=== PATIENT | female | born 1990 | race African-American/Black ===

== ENCOUNTER 2017-12-30 12:37 | Emergency (ER) | payer OTHER, MEDICAID ==
--- NOTE | 2017-12-30 13:41 | ER Document Report ---
ED General - General Chief Complaint: Vag Bleeding, +preg <12wks Stated Complaint: VAGINAL BLEEDING Time Seen by Provider: 12/30/17 13:16 Notes: Patient states her LMP was November 20 and she had a positive home test. Vaginal bleeding started yesterday, still has a little bleeding today but not as bad. Complains of lower abdominal cramping. TRAVEL OUTSIDE OF THE [place] IN LAST 30 DAYS: No - HPI Patient complains to provider of: vaginal bleeding Onset: Yesterday Onset/Duration: Sudden Quality of pain: Cramping Severity: Mild Pain Level: 2 Associated symptoms: denies: Fever, Vomiting Exacerbated by: Denies Relieved by: Denies Similar symptoms previously: No Recently seen / treated by doctor: No - Related Data Allergies/Adverse Reactions: Penicillins Allergy (Verified 12/30/17 12:40) Past Medical History - General Information source: Patient Last Menstrual Period: 11/20/17 - Social History Smoking Status: Never Smoker Frequency of alcohol use: Occasional Drug Abuse: None Lives with: Spouse/Significant other Family History: Reviewed & Not Pertinent Patient has suicidal ideation: No Patient has homicidal ideation: No Pulmonary Medical History: Reports: Hx Asthma Past Surgical History: Reports: Hx Orthopedic Surgery Review of Systems - Review of Systems Constitutional: No symptoms reported EENT: No symptoms reported Cardiovascular: No symptoms reported Respiratory: No symptoms reported Gastrointestinal: See HPI Genitourinary: No symptoms reported Female Genitourinary: See HPI Musculoskeletal: No symptoms reported Skin: No symptoms reported Hematologic/Lymphatic: No symptoms reported Neurological/Psychological: No symptoms reported -: Yes All other systems reviewed and negative Physical Exam - Vital signs Vitals: Temp Pulse Resp BP Pulse Ox 97.7 F 76 16 114/71 97 12/30/17 12:46 12/30/17 12:46 12/30/17 12:46 12/30/17 12:46 12/30/17 12:46 - General General appearance: Appears well In distress: None - Respiratory Respiratory status: No respiratory distress Breath sounds: Normal - Cardiovascular Rhythm: Regular Heart sounds: Normal auscultation - Abdominal Inspection: Normal Bowel sounds: Normal Tenderness: Nontender - Extremities General upper extremity: Normal inspection General lower extremity: Normal inspection - Neurological Neuro grossly intact: Yes Cognition: Normal Orientation: AAOx4 - Psychological Associated symptoms: Normal affect, Normal mood - Skin Skin Temperature: Warm Skin Moisture: Dry Skin Color: Normal Course - Re-evaluation Re-evalutation: 12/30/17 16:57 quant level at 160, and no IUP seen on U/S. Recommended to have serial quant levels and u/s as ectopic could be ruled out. - Vital Signs Vital signs: Temp Pulse Resp BP Pulse Ox 97.7 F 76 16 114/71 97 12/30/17 12:46 12/30/17 12:46 12/30/17 12:46 12/30/17 12:46 12/30/17 12:46 - Laboratory Laboratory results interpreted by me: 12/30/17 12/30/17 13:30 15:45 Beta HCG, Quant 159.86 H Urine Blood SMALL H Discharge - Discharge Clinical Impression: Vaginal bleeding, Positive blood test Condition: Good Disposition: HOME, SELF-CARE Additional Instructions: you are to return in 48 hrs for repeat quant levels and ultrasound as ectopic cannot be ruled out. (SundayJanuary 01) tylenol prn cramping return earlier if any problems Forms: Return to Work
[2017-12-30 14:06] LABS: APPEARANCE,URINE SLIGHTLY-CLOUDY; BILIRUBIN,URINE NEGATIVE (NEGATIVE); COLOR,URINE YELLOW; GLUCOSE, URINE NEGATIVE (NEGATIVE); KETONES,URINE NEGATIVE (NEGATIVE); LEUKOCYTE ESTERASE,URINE NEGATIVE (NEGATIVE); NITRITE,URINE NEGATIVE (NEGATIVE); PROTEIN,URINE NEGATIVE (NEGATIVE); URINE SPECIFIC GRAVITY 1.024; UROBILINOGEN,URINE NEGATIVE mg/dL (<2.0)
--- NOTE | 2017-12-30 14:07 | RADIOLOGY REPORT (SQ) ---
EXAM DESCRIPTION: U/S OB TRANSVAGINAL W/O DOP COMPLETED DATE/TIME: 12/30/2017 1:57 pm REASON FOR STUDY: vag bleed and cramping COMPARISON: None. TECHNIQUE: Transvaginal static and realtime grayscale images acquired of the pelvis. Additional shona cted spectral and color Doppler images recorded. All images stored on PACs. BHCG: Pending LIMITATIONS: None. FINDINGS: UTERUS: No visualized intrauterine . Uterus is 9 x 6 x 5 cm in size. Endometria l stripe 8 mm in thickness. Cervix closed. No nabothian cysts. RIGHT ADNEXA: Normal ovary with normal vascular flow. Right ovary 4.2 x 1.7 x 1.5 cm in size with a 1.8 cm simple cyst. No adnexal free fluid. No adnexal masses. LEFT ADNEXA: Normal ovary with normal vascular flow. Left ovary 2.5 x 1.2 x 1.1 cm in size. No adnexal free fluid. No adnexal masses. FREE FLUID: None. OTHER: No other significant finding. IMPRESSION: NO VISUALIZED INTRA- OR EXTRAUTERINE . ECTOPIC CANNOT ENTIRELY BE EXCLUDED. FOLLOW-UP ULTRASOUND AND SERIAL BHCG LEVELS STRONGLY RECOMMENDED TO ACCURATELY ASSESS STATU S. TECHNICAL DOCUMENTATION: JOB ID: [id number] [employer]- All Rights Reserved Reading location - IP/workstation name: [email or web address]
[2017-12-30 17:12] VITALS: BP 121/80
== END 2017-12-30 17:12 | disposition home or self-care (01) ==
LOC: ER 12:37
DX: N93.9 Abnormal uterine and vaginal bleeding, unspecified (principal); R10.30 Lower abdominal pain, unspecified; J45.909 Unspecified asthma, uncomplicated; Z32.01 Encounter for pregnancy test, result positive; Z88.0 Allergy status to penicillin
CPT/HCPCS: 36415; 76817; 81001; 84702; 86900; 86901; 99284

== ENCOUNTER 2018-01-01 09:07 | Emergency (ER) | payer OTHER, MEDICAID ==
--- NOTE | 2018-01-01 09:48 | ER Document Report ---
ED GI/ - General Chief Complaint: Vag Bleeding, +preg <12wks Stated Complaint: VAGINAL BLEEDING Time Seen by Provider: 01/01/18 09:18 Information source: Patient Notes: Patient is a 27-year-old female 002 at 6 weeks by dates who presents today with initially some vaginal spotting and bleeding with no blood clots on Sunday. She was seen and evaluated here Sunday and had a low quantitative hCG , Rh+, and transvaginal ultrasound showing no obvious IUP or adnexal masses. Patient presents today for repeat follow-up. She states the bleeding has stopped. She denies any cramping. She denies any fevers or dysuria. TRAVEL OUTSIDE OF THE [place] IN LAST 30 DAYS: No - HPI Patient complains to provider of: , Vaginal bleeding Onset: Other - See above Timing/Duration: Gradual Quality of pain: No pain Severity at maximum: Mild Severity in ED: None Pain Level: Denies Location: Suprapubic Vaginal bleeding (Compared to normal period): None Sexual history: Inactive Associated symptoms: Other - See above Exacerbated by: Denies Relieved by: Denies Similar symptoms previously: Yes Recently seen / treated by doctor: Yes - Related Data Allergies/Adverse Reactions: Penicillins Allergy (Verified 01/01/18 09:08) Past Medical History - General Information source: Patient - Social History Smoking Status: Unknown if Ever Smoked Cigarette use (# per day): No Chew tobacco use (# tins/day): No Smoking Education Provided: No Family History: Reviewed & Not Pertinent Pulmonary Medical History: Reports: Hx Asthma Renal/ Medical History: Denies: Hx Peritoneal Dialysis Past Surgical History: Reports: Hx Orthopedic Surgery Review of Systems - Review of Systems Constitutional: denies: Fever Cardiovascular: denies: Syncope, Dizziness Respiratory: denies: Short of breath Gastrointestinal: denies: Vomiting Genitourinary: denies: Dysuria Skin: Other - no hives. denies: Rash Neurological/Psychological: Other - no slurred speech -: Yes All other systems reviewed and negative Physical Exam - Vital signs Vitals: Temp Pulse Resp BP Pulse Ox 99.2 F 94 12 111/71 99 01/01/18 09:10 01/01/18 09:10 01/01/18 09:10 01/01/18 09:10 01/01/18 09:10 Notes: Given the history and physical examination, with no bleeding or cramping at this time, I will obtain a quantitative hCG and repeat ultrasound. I do not believe a urine analysis or other laboratory work is necessary at this moment. Course - Re-evaluation Re-evalutation: 01/01/18 11:58 Patient still denies any pain. Repeat quantitative hCG has decreased from previous visit. Ultrasound unremarkable. Hemoglobin is recorded. Given the above history and physical examination, I do believe that the patient has had a miscarriage. Strict return precautions have been explained to the patient. 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 - Vital Signs Vital signs: Temp Pulse Resp BP Pulse Ox 99.2 F 94 12 111/71 99 01/01/18 09:10 01/01/18 09:10 01/01/18 09:10 01/01/18 09:10 01/01/18 09:10 - Laboratory Result Diagrams: 01/01/18 09:55 Laboratory results interpreted by me: 01/01/18 01/01/18 09:55 09:55 RDW 14.2 H Lymphocytes % 45.2 H Beta HCG, Quant 45.75 H Discharge - Discharge Clinical Impression: Miscarriage Condition: Good Disposition: HOME, SELF-CARE Additional Instructions: Come back immediately for any increased pain, fevers, lightheadedness, dizziness , excessive vaginal bleeding, or any other acute problems. Please follow-up with your primary care physician/[employer] WORK[employer] as we have discussed. Referrals: RODOLFO GARDINER MD [Primary Care Provider] - Follow up as needed
[2018-01-01 10:09] LABS: ABSOLUTE EOSINOPHILS # (AUTO) 0.1 10^3/uL (0.0-0.6); ABSOLUTE MONOCYTES (AUTO) 0.2 10^3/uL (0.1-1.4); ABSOLUTE NEUT (AUTO) 2.1 10^3/uL (1.7-8.2); BASOPHILS % (AUTO) 0.6 % (0-2); EOSINOPHILS % (AUTO) 1.2 % (0-6); HEMOGLOBIN 14.2 g/dL (12.0-15.5); LYMPHOCYTES % (AUTO) 45.2 % (13-45); MEAN CORPUSCULAR HEMOGLOBIN 30.1 pg (27.0-33.4); MEAN CORPUSCULAR HGB CONC 33.1 g/dL (32.0-36.0); MEAN CORPUSCULAR VOLUME 91 fl (80-97); MONOCYTES % (AUTO) 5.4 % (3-13); PLATELET COUNT 311 10^3/uL (150-450); RED BLOOD COUNT 4.73 10^6/uL (3.72-5.28); RED CELL DISTRIBUTION WIDTH 14.2 % (11.5-14.0); SEGMENTED NEUTROPHILS % (AUTO) 47.6 % (42-78); TOTAL CELLS COUNTED % (AUTO) 100 %; WHITE BLOOD COUNT 4.5 10^3/uL (4.0-10.5)
--- NOTE | 2018-01-01 11:52 | RADIOLOGY REPORT (SQ) ---
EXAM DESCRIPTION: U/S OB TRANSVAGINAL W/O DOP COMPLETED DATE/TIME: 01/01/2018 11:35 am REASON FOR STUDY: 44,vag bleeding COMPARISON: 12/30/2017 TECHNIQUE: Static and realtime grayscale images acquired of the pelvis. Additional selected spectral and color Doppler images recorded. All images stored on PACs. [id number]. On 12/30/2017 159.86 LIMITATIONS: None. FINDINGS: UTERUS: No visualized intrauterine . RIGHT ADNEXA: Normal ovary with normal vascular flow. No adnexal free fluid. 1.9 cm simple ovarian cyst LEFT ADNEXA: Ovary not identified. No adnexal free fluid. No adnexal masses. FREE FLUID: None. OTHER: No other significant finding. IMPRESSION: NO VISUALIZED INTRA- OR EXTRAUTERINE . bHCG LEVEL TOO LOW TO EXPECT VISUALIZATION OF . ECTOPIC CANNOT BE EXCLUDED. TECHNICAL DOCUMENTATION: JOB ID: [id number] [employer]- All Rights Reserved Reading location - IP/workstation name: [email or web address]
[2018-01-01 12:08] VITALS: BP 112/63
== END 2018-01-01 12:09 | disposition home or self-care (01) ==
LOC: ER 09:07
DX: O03.9 Complete or unspecified spontaneous abortion without complication (principal); J45.909 Unspecified asthma, uncomplicated; Z88.0 Allergy status to penicillin
CPT/HCPCS: 36415; 76817; 84702; 85025; 99284

== ENCOUNTER 2018-05-21 18:28 | Emergency (ER) | payer OTHER, MEDICAID ==
[2018-05-21] MEDS ORDERED: RINGERS SOLUTION,LACTATED 1,000 ML IV ONE (18:48)
[2018-05-21] MEDS ORDERED: NORMAL SALINE 1000 ML 1,000 ML IV PRN (18:48)
[2018-05-21] MEDS ORDERED: ONDANSETRON HCL INJ/PF 4 MG/2 ML SDV IV ONE (18:49)
--- NOTE | 2018-05-21 18:52 | ER Document Report ---
ED General - General Chief Complaint: Headache Stated Complaint: DIZZY Time Seen by Provider: 05/21/18 18:45 Mode of Arrival: Ambulatory Information source: Patient Notes: Chief complaint: Feeling dizzy History of complain:( obtained from----patient) 27 years old female 6 weeks , nauseous for the last few weeks, not been eating well or drinking well due to nausea and vomiting, presents with lightheadedness weak dizzy for the last few days. No fever chills or other constitutional symptoms. Denies any abdominal pain. Denies any dysuria frequency urgency. This is her fourth with 2 living children and one miscarriage Onset: As above Duration: As above Severity: Moderate Quality: Not applicable Context: As above Exacerbating factor and relieving factors: Exertion REVIEW OF SYSTEMS: CONSTITUTIONAL : Denies fever, chills, or sweats. Denies recent illness. EENT: Denies eye, ear, throat, or mouth pain or symptoms. Denies nasal or sinus congestion or discharge. Denies throat, tongue, or mouth swelling or difficulty swallowing. CARDIOVASCULAR: Denies chest pain. Denies palpitations or racing or irregular heart beat. Denies ankle edema. RESPIRATORY: Denies cough, cold, or chest congestion. Denies shortness of breath, difficulty breathing, or wheezing. GASTROINTESTINAL: Denies distention. Denies nausea, vomiting, or diarrhea. Denies blood in vomitus, stools, or per rectum. Denies black, tarry stools. Denies constipation. GENITOURINARY: Denies difficulty urinating, painful urination, burning, frequency, blood in urine, or discharge. FEMALE GENITOURINARY: Denies vaginal bleeding, heavy or abnormal periods, irregular periods. Denies vaginal discharge or odor. MUSCULOSKELETAL: Denies back or neck pain or stiffness. Denies joint pain or swelling. SKIN: Denies rash, lesions or sores. HEMATOLOGIC : Denies easy bruising or bleeding. LYMPHATIC: Denies swollen, enlarged glands. NEUROLOGICAL: Denies confusion or altered mental status. Denies passing out or loss of consciousness. Denies dizziness or lightheadedness. Denies headache. Denies weakness or paralysis or loss of use of either side. Denies problems with gait or speech. Denies sensory loss, numbness, or tingling. Denies seizures. PSYCHIATRIC: Denies anxiety or stress. Denies depression, suicidal ideation, or homicidal ideation. ALL OTHER SYSTEMS REVIEWED AND NEGATIVE. PHYSICAL EXAMINATION: GENERAL: Well-appearing, well-nourished and in no acute distress. HEAD: Atraumatic, normocephalic. EYES: Pupils equal round and reactive to light, extraocular movements intact, conjunctiva are normal. ENT: Nares patent, oropharynx clear without exudates. Moist mucous membranes. NECK: Normal range of motion, supple without lymphadenopathy LUNGS: Breath sounds clear to auscultation bilaterally and equal. No wheezes rales or rhonchi. HEART: Regular rate and rhythm without murmurs ABDOMEN: Soft, nontender, nondistended abdomen. No guarding, no rebound. No masses appreciated. Examination of genitals-deferred Musculoskeletal: Normal range of motion, no pitting or edema. No cyanosis. NEUROLOGICAL: Cranial nerves grossly intact. Normal speech, normal gait. Normal sensory, motor exams PSYCH: Normal mood, normal affect. SKIN: Warm, Dry, normal turgor, no rashes or lesions noted. Dictation was performed using [employer] voice recognition software TRAVEL OUTSIDE OF THE [place] IN LAST 30 DAYS: No - HPI Notes: Dictated - Related Data Allergies/Adverse Reactions: Penicillins Allergy (Verified 01/01/18 09:08) Past Medical History - General Information source: Patient - Social History Smoking Status: Never Smoker Frequency of alcohol use: None Drug Abuse: None Lives with: Family Family History: Reviewed & Not Pertinent Pulmonary Medical History: Reports: Hx Asthma Renal/ Medical History: Denies: Hx Peritoneal Dialysis Past Surgical History: Reports: Hx Orthopedic Surgery Review of Systems - Review of Systems Notes: Dictated Physical Exam - Vital signs Vitals: Temp Pulse Resp BP Pulse Ox 99.1 F 74 16 114/69 100 05/21/18 18:33 05/21/18 18:33 05/21/18 18:33 05/21/18 18:33 05/21/18 18:33 - Notes Notes: Dictated Course - Re-evaluation Re-evalutation: 05/21/18 20:44 Given IV fluid - Vital Signs Vital signs: Temp Pulse Resp BP Pulse Ox 99.1 F 74 16 114/69 100 05/21/18 18:33 05/21/18 18:33 05/21/18 18:33 05/21/18 18:33 05/21/18 18:33 - Laboratory Result Diagrams: 05/21/18 19:53 05/21/18 19:53 Discharge - Discharge Clinical Impression: Nausea/vomiting in , Dehydration Condition: Fair Disposition: HOME, SELF-CARE Instructions: Antinausea Medication ([facility]), ([facility]) Prescriptions: Ondansetron [Zofran Odt 4 mg Tablet] 1 - 2 tab PO Q4H PRN #30 tab.rapdis PRN Reason: For Nausea/Vomiting Referrals: RODOLFO GARDINER MD [Primary Care Provider] - Follow up as needed
[2018-05-21 20:04] LABS: ABSOLUTE BASOPHILS # (AUTO) 0.1 10^3/uL (0.0-0.2); ABSOLUTE LYMPHOCYTES (AUTO) 3.1 10^3/uL (0.5-4.7); ABSOLUTE MONOCYTES (AUTO) 0.5 10^3/uL (0.1-1.4); ABSOLUTE NEUT (AUTO) 5.4 10^3/uL (1.7-8.2); BASOPHILS % (AUTO) 0.8 % (0-2); EOSINOPHILS % (AUTO) 0.4 % (0-6); HEMATOCRIT 38.8 % (36.0-47.0); HEMOGLOBIN 13.1 g/dL (12.0-15.5); LYMPHOCYTES % (AUTO) 34.1 % (13-45); MEAN CORPUSCULAR HEMOGLOBIN 30.5 pg (27.0-33.4); MEAN CORPUSCULAR HGB CONC 33.7 g/dL (32.0-36.0); MEAN CORPUSCULAR VOLUME 91 fl (80-97); MONOCYTES % (AUTO) 5.6 % (3-13); PLATELET COUNT 315 10^3/uL (150-450); RED BLOOD COUNT 4.29 10^6/uL (3.72-5.28); RED CELL DISTRIBUTION WIDTH 13.3 % (11.5-14.0); SEGMENTED NEUTROPHILS % (AUTO) 59.1 % (42-78); TOTAL CELLS COUNTED % (AUTO) 100 %; WHITE BLOOD COUNT 9.2 10^3/uL (4.0-10.5)
[2018-05-21 20:19] LABS: ALANINE AMINOTRANSFERASE 24 U/L (9-52); ALBUMIN 4.4 g/dL (3.5-5.0); ALKALINE PHOSPHATASE 41 U/L (38-126); ANION GAP 13 (5-19); ASPARTATE AMINO TRANSFERASE 24 U/L (14-36); BILIRUBIN,DIRECT 0.3 mg/dL (0.0-0.4); BILIRUBIN,TOTAL 0.5 mg/dL (0.2-1.3); BLOOD UREA NITROGEN 11 mg/dL (7-20); CALCIUM 9.4 mg/dL (8.4-10.2); CARBON DIOXIDE 21 mmol/L (22-30); CHLORIDE 104 mmol/L (98-107); GLUCOSE 82 mg/dL (75-110); POTASSIUM 4.8 mmol/L (3.6-5.0); SODIUM 137.5 mmol/L (137-145); TOTAL PROTEIN 7.4 g/dL (6.3-8.2)
[2018-05-21 21:51] VITALS: BP 107/49
== END 2018-05-21 21:47 | disposition home or self-care (01) ==
LOC: ER 18:28
DX: O21.9 Vomiting of pregnancy, unspecified (principal); O26.891 Other specified pregnancy related conditions, first trimester; E86.0 Dehydration; R51 Headache; R42 Dizziness and giddiness; Z3A.01 Less than 8 weeks gestation of pregnancy; J45.909 Unspecified asthma, uncomplicated
CPT/HCPCS: 99284; 96375; 96365; 96366; 36415; 84702; 85025; 80053; J2405; J7120

== ENCOUNTER 2018-06-03 20:53 | Emergency (ER) | payer OTHER, MEDICAID ==
[2018-06-03 21:45] VITALS: BP 109/69
[2018-06-03] MEDS ORDERED: DIPHENHYDRAMINE HCL 50 MG CAPSULE PO ONE (22:48)
[2018-06-03] MEDS ORDERED: ACETAMINOPHEN 325 MG TABLET PO ONE (22:48)
[2018-06-03] MEDS ORDERED: PROMETHAZINE HCL 25 MG TABLET PO ONE (22:48)
--- NOTE | 2018-06-03 22:59 | ER Document Report ---
ED Headache - General Chief Complaint: Headache Stated Complaint: SEVERE HEADACHE,CHILLS Time Seen by Provider: 06/03/18 22:31 Mode of Arrival: Ambulatory Information source: Patient Notes: 27-year-old female presented ED for complaint of migraine headache. She has a history of migraines and scoliosis. 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 She is alert and oriented respirations regular and unlabored pupils equal and react to light and walks with a even steady gait. TRAVEL OUTSIDE OF THE [place] IN LAST 30 DAYS: No - HPI Patient complains to provider of: "Migraine" Patient reports: Other - History of headaches Onset: This morning Onset was: Gradual Timing: Still present Quality of pain: Achy, Sharp Severity: Severe Pain Level: 5 Associated symptoms: Nausea/vomiting Exacerbated by: Light, Noise, Movement Similar symptoms previously: Yes Recently seen / treated by doctor: Yes - Related Data Allergies/Adverse Reactions: Penicillins Allergy (Verified 01/01/18 09:08) Past Medical History - General Information source: Patient - Social History Smoking Status: Never Smoker Cigarette use (# per day): No Chew tobacco use (# tins/day): No Smoking Education Provided: No Drug Abuse: None 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 Lives with: Family Family History: Reviewed & Not Pertinent Patient has suicidal ideation: No Patient has homicidal ideation: No - Past Medical History Cardiac Medical History: Reports: None Pulmonary Medical History: Reports: Hx Asthma EENT Medical History: Reports: None Neurological Medical History: Reports: Hx Migraine Endocrine Medical History: Reports: Other - Gestational diabetes Renal/ Medical History: Reports: None Malignancy Medical History: Reports: None GI Medical History: Reports: None Musculoskeletal Medical History: Reports Hx Musculoskeletal Deformity - Scoliosis Skin Medical History: Reports None Psychiatric Medical History: Reports: None Traumatic Medical History: Reports: None Infectious Medical History: Reports: None Past Surgical History: Reports: Hx Orthopedic Surgery - Rashid rods and screws - Immunizations Immunizations up to date: Yes Review of Systems - Review of Systems Constitutional: No symptoms reported EENT: No symptoms reported Cardiovascular: No symptoms reported Respiratory: No symptoms reported Gastrointestinal: Nausea Genitourinary: No symptoms reported Female Genitourinary: No symptoms reported Musculoskeletal: No symptoms reported Skin: No symptoms reported Hematologic/Lymphatic: No symptoms reported Neurological/Psychological: Headaches -: Yes All other systems reviewed and negative Physical Exam - Vital signs Vitals: Temp Pulse Resp BP Pulse Ox 98.6 F 70 18 109/69 100 06/03/18 21:44 06/03/18 21:44 06/03/18 21:44 06/03/18 21:44 06/03/18 21:44 Interpretation: Normal - General General appearance: Appears well, Alert - HEENT Head: Normocephalic, Atraumatic Eyes: Normal Pupils: PERRL Ears: Normal External canal: Normal Tympanic membrane: Normal Sinus: Normal Nasal: Normal Mouth/Lips: Normal Mucous membranes: Normal Pharynx: Normal Neck: Normal - Respiratory Respiratory status: No respiratory distress Chest status: Nontender Breath sounds: Normal Chest palpation: Normal - Cardiovascular Rhythm: Regular Heart sounds: Normal auscultation Murmur: No - Abdominal Inspection: Normal Distension: No distension Bowel sounds: Normal Tenderness: Nontender Organomegaly: No organomegaly - Back Back: Normal, Nontender - Extremities General upper extremity: Normal inspection, Nontender, Normal color, Normal ROM , Normal temperature General lower extremity: Normal inspection, Nontender, Normal color, Normal ROM , Normal temperature, Normal weight bearing. 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 She is 11 weeks and cannot give a normal migraine cocktail. Patient was discharged home and instructed to follow-up with her [facility] to determine treatment for her migraines during . - Vital Signs Vital signs: Temp Pulse Resp BP Pulse Ox 98.6 F 70 18 109/69 100 06/03/18 21:44 06/03/18 21:44 06/03/18 21:44 06/03/18 21:44 06/03/18 21:44 Discharge - Discharge Clinical Impression: Migraine during Condition: Stable Disposition: HOME, SELF-CARE Additional Instructions: HEADACHE: The physician does not feel that the headache you are experiencing has a serious underlying cause. Most headaches are due to emotional stress, with resultant muscle tension (tension headache). Occasionally, headaches are secondary to changes in the blood vessels of the scalp (vascular headache and migraine headache). Sometimes, a headache is the first symptom of another developing illness, such as a viral infection. You have no evidence of stroke, bleeding, meningitis, or other serious cause of your headache. The treatment of headaches varies with the severity and cause of the pain. Not all headaches need pain shots. In fact, there is evidence that using narcotics for headaches may make them worse in the long run. The physician will determine the therapy that's in your best interest. If you develop a fever, if the headache is different from any you've previously experienced, or if the headache progressively worsens, then call your physician at once or go to the emergency room. USE OF DIPHENHYDRAMINE: Diphenhydramine (Benadryl) is an antihistamine and has been recommended to help treat your headache and to prevent side effects of other medications used to treat headaches. The medication can be repeated four times daily. Age Elixir (12.5 mg/tsp) 25 mg pill adult 1-2 tabs Antihistamines may cause drowsiness, especially with the first dose. Do not operate machinery or drive while under the effects of the medication. Do not combine the medication with alcohol, or with any other medication without talking to your doctor. ANTINAUSEA MEDICATION: You have been given a medication to suppress nausea and vomiting. This type of medication can be given as a shot, pill, or suppository. It will usually last for many hours. Pills and shots usually last six to eight hours, suppositories last about 12 hours. For the typical illness, only one or two doses of the medication may be necessary. Mild lightheadedness may occur. This type of medicine can cause drowsiness. Do not drive or operate dangerous machinery while under its influence. Do not mix with alcohol. See your doctor at once if you have muscle spasms or tightness, or uncontrollable motions (particularly of the neck, mouth, or jaw). Persistent vomiting or severe lightheadedness should also be evaluated by the physician. Acetaminophen Acetaminophen may be taken for pain relief or fever control. It's much safer than aspirin, offering a wider range of "safe" dosages. It is safe during . Some brand names are Tylenol, Panadol, Datril, Anacin 3, Tempra, and Liquiprin. Acetaminophen can be repeated every four hours. The following are maximum recommended dosages: WEIGHT Dose Drops Elixir Chewable( 80mg) (LBS.) drprs=droppers tsp=teaspoon 6 40 mg .4 ml (1/2) 6-11 80 mg .8 ml (full) 1/2 tsp 1 tab 12-16 120 mg 1 1/2 drprs 3/4 tsp 1 1/2 tabs 17-23 160 mg 2 drprs 1 tsp 2 tabs 24-30 240 mg 3 drprs 1 1/2 tsp 3 tabs 30-35 320 mg 2 tsp 4 tabs 36-41 360 mg 2 1/4 tsp 4 1 /2 tabs 42-47 400 mg 2 1/2 tsp 5 tabs 48-53 480 mg 3 tsp 6 tabs 54-59 520 mg 3 1/4 tsp 6 1 /2 tabs 60-64 560 mg 3 1/2 tsp 7 tabs 65-70 600 mg 3 3/4 tsp 7 1 /2 tabs 71-76 640 mg 4 tsp 8 tabs 77-82 720 mg 4 1/2 tsp 9 tabs 83-88 800 mg 5 tsp 10 tabs >89 pounds or adults 650 mg to 900 mg Acetaminophen can be repeated every four hours. Maximum daily dose not to exceed 4000 mg. These maximum recommended dosages are slightly higher than the dosages written on the product container, but these dosages are very safe and well below the toxic dosage for acetaminophen. FOLLOW-UP CARE: If you have been referred to a physician for follow-up care, call the physician s office for an appointment as you were instructed or within the next two days. If you experience worsening or a significant change in your symptoms, notify the physician immediately or return to the Emergency Department at any time for re-evaluation. Call your [facility] tomorrow and let them know that you have been migraines so they can determine what kind of medications they want you to take for your migraines during . Prescriptions: Promethazine HCl [Phenergan 25 mg Tablet] 25 mg PO Q6H PRN #15 tablet PRN Reason: Forms: Return to Work Referrals: RODOLFO GARDINER MD [Primary Care Provider] - Follow up in 3-5 days
== END 2018-06-03 22:59 | disposition home or self-care (01) ==
LOC: ER 20:53
DX: O99.351 Diseases of the nervous system complicating pregnancy, first trimester (principal); G43.909 Migraine, unspecified, not intractable, without status migrainosus; O21.9 Vomiting of pregnancy, unspecified; O99.511 Diseases of the respiratory system complicating pregnancy, first trimester; J45.909 Unspecified asthma, uncomplicated; Z3A.11 11 weeks gestation of pregnancy; Z88.0 Allergy status to penicillin
CPT/HCPCS: 99283

== ENCOUNTER 2018-06-27 08:22 | Emergency (ER) | payer OTHER, MEDICAID ==
--- NOTE | 2018-06-27 09:02 | ER Document Report ---
ED GI/ - General Chief Complaint: Vag Bleeding, +preg <12wks Stated Complaint: VAGINAL SPOTTING Time Seen by Provider: 06/27/18 09:01 Notes: 27-year-old female to the emergency department complaining of spotting/vaginal bleeding and some lower pelvic cramping radiating to her back. Patient states that she is approximately 15-16 weeks . Denies any fever, chills, sweats. No pain in the right upper quadrant or right lower quadrant. No diarrhea. No vomiting. TRAVEL OUTSIDE OF THE [place] IN LAST 30 DAYS: No - HPI Patient complains to provider of: Abdominal pain Timing/Duration: Gradual Quality of pain: Achy Severity at maximum: Moderate Severity in ED: Mild Pain Level: 1 - Related Data Allergies/Adverse Reactions: Penicillins Allergy (Verified 06/27/18 08:22) Past Medical History - General Information source: Patient - Social History Smoking Status: Never Smoker Frequency of alcohol use: None Drug Abuse: None Lives with: Family Family History: Reviewed & Not Pertinent Pulmonary Medical History: Reports: Hx Asthma Neurological Medical History: Reports: Hx Migraine Renal/ Medical History: Denies: Hx Peritoneal Dialysis Musculoskeletal Medical History: Reports Hx Musculoskeletal Deformity - Scoliosis Past Surgical History: Reports: Hx Orthopedic Surgery - Rashid rods and screws - Immunizations Immunizations up to date: Yes Review of Systems - Review of Systems Notes: Constitutional: denies: Chills, Diaphoresis, Fever, Malaise, Weakness EENT: denies: Eye discharge, Blurred vision, Tearing, Double vision, Nose congestion, Nose discharge, Throat swelling, Mouth pain Cardiovascular: denies: Palpitations, Heart racing, Orthopnea, Dyspnea, Chest pain Respiratory: denies: Cough, Hurts to breathe, Wheezing, Shortness of breath Gastrointestinal: Abdominal pain, no nausea, no vomiting. Genitourinary: denies: Burning, Dysuria, Discharge, Frequency, Flank pain, Hematuria. with vaginal bleeding Musculoskeletal: denies: Joint pain, Joint swelling, Muscle pain, Muscle stiffness,. Does complain of some low back pain Hematologic/Lymphatic: denies: Anemia, Easy bleeding, Easy bruising, Blood clots Neurological/Psychological: denies: Confusion, Dementia, Depression, Loss of consciousness Skin: No lesions, no masses, no skin breakdown, no abscesses Physical Exam - Vital signs Vitals: Temp Pulse Resp BP Pulse Ox 98.0 F 77 20 123/56 L 100 06/27/18 08:47 06/27/18 08:47 06/27/18 08:47 06/27/18 08:47 06/27/18 08:47 Interpretation: Normal - General General appearance: Appears well, Alert - HEENT Head: Normocephalic, Atraumatic Eyes: Normal Pupils: PERRL - Respiratory Respiratory status: No respiratory distress Chest status: Nontender Breath sounds: Normal Chest palpation: Normal - Cardiovascular Rhythm: Regular Heart sounds: Normal auscultation Murmur: No - Abdominal Inspection: Gravid female, Other - Approximately 16 week gravid uterus Distension: No distension Bowel sounds: Normal Tenderness: Nontender Organomegaly: No organomegaly - Back Back: Normal, Nontender - Extremities General upper extremity: Normal inspection, Nontender, Normal color, Normal ROM , Normal temperature General lower extremity: Normal inspection, Nontender, Normal color, Normal ROM , Normal temperature, Normal weight bearing. No: Sridevi's sign - Neurological Neuro grossly intact: Yes Cognition: Normal Orientation: AAOx4 Jeremy Coma Scale Eye Opening: Spontaneous [place] Coma Scale Verbal: Oriented Jeremy Coma Scale Motor: Obeys Commands [place] Coma Scale Total: 15 Speech: Normal Motor strength normal: LUE, RUE, LLE, RLE Sensory: Normal - Psychological Associated symptoms: Normal affect, Normal mood - Skin Skin Temperature: Warm Skin Moisture: Dry Skin Color: Normal Course - Re-evaluation Re-evalutation: 06/27/18 10:48 Urinalysis unremarkable. Bedside ultrasound shows a intrauterine with heart tones in the 140s. Patient is Rh+. Nothing further at this time. Spent a long amount of time discussing lower pelvic pain in . Did give the patient warning signs with regards to repeat evaluation especially within the next 24 hours in the event she develops any right lower quadrant, right upper quadrant pain, fever, worsening vaginal bleeding or other concerns. - Vital Signs Vital signs: Temp Pulse Resp BP Pulse Ox 98.1 F 82 18 122/78 98 06/27/18 10:35 06/27/18 10:35 06/27/18 10:35 06/27/18 10:35 06/27/18 10:35 Discharge - Discharge Clinical Impression: Pelvic pain affecting in second trimester, antepartum, Vaginal bleeding before 22 weeks gestation Condition: Good Disposition: HOME, SELF-CARE Instructions: Pelvic Pain in and Round Ligament Pain ([facility]), Vaginal Bleeding ([facility]), Pelvic Pain in ([facility]) Forms: Return to Work Referrals: RODOLFO GARDINER MD [ACTIVE STAFF] - Follow up as needed SHAHEED MISHRA MD [Primary Care Provider] - Follow up in 3-5 days
[2018-06-27 09:42] LABS: APPEARANCE,URINE CLOUDY; BILIRUBIN,URINE NEGATIVE (NEGATIVE); COLOR,URINE YELLOW; GLUCOSE, URINE NEGATIVE (NEGATIVE); KETONES,URINE NEGATIVE (NEGATIVE); LEUKOCYTE ESTERASE,URINE NEGATIVE (NEGATIVE); NITRITE,URINE NEGATIVE (NEGATIVE); PROTEIN,URINE NEGATIVE (NEGATIVE); URINE SPECIFIC GRAVITY 1.021; UROBILINOGEN,URINE NEGATIVE mg/dL (<2.0)
[2018-06-27 10:43] VITALS: BP 122/78
== END 2018-06-27 10:40 | disposition home or self-care (01) ==
LOC: ER 08:22
DX: O26.852 Spotting complicating pregnancy, second trimester (principal); O26.892 Other specified pregnancy related conditions, second trimester; R10.2 Pelvic and perineal pain; Z3A.15 15 weeks gestation of pregnancy
CPT/HCPCS: 81001; 87086; 99284

== ENCOUNTER 2018-07-20 17:59 | Emergency (ER) | payer OTHER, MEDICAID ==
[2018-07-20 18:04] VITALS: BP 121/61
--- NOTE | 2018-07-20 19:01 | ER Document Report ---
ED Respiratory Problem - General Chief Complaint: Cold Symptoms Stated Complaint: VOMITING, SORE THROAT,CHILLS Time Seen by Provider: 07/20/18 18:50 Mode of Arrival: Ambulatory Information source: Patient Notes: Patient is a 27-year-old female who that is approximately 18 weeks comes emergency room complaining of cough cold congestion and some vomiting with cough. States she has had low-grade fever off and on. Started approximately 3 days ago. 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 She does not smoke. She denies any other medical problems. She is 4 para 2 A1 she has had no complications during the . She has been exposed to other people with upper respiratory infections. She is eating and drinking well. TRAVEL OUTSIDE OF THE [place] IN LAST 30 DAYS: No - HPI Patient complains to provider of: Cough Onset: Other - Past 3 days Initiating Event: Allergy, URI Quality of pain: No pain Severity: Mild Pain Level: 0 Context: . denies: Smoker Short of Breath: Mild Cough: Nonproductive Sputum amount: None Associated symptoms: Congestion, Cough, Earache, Fever, Runny nose Similar symptoms previously: No Recently seen / treated by doctor: No - Related Data Allergies/Adverse Reactions: Penicillins Allergy (Verified 07/20/18 18:00) Past Medical History - General Information source: Patient - Social History Smoking Status: Never Smoker Chew tobacco use (# tins/day): No Smoking Education Provided: No Frequency of alcohol use: None Drug Abuse: None Family History: Reviewed & Not Pertinent Patient has suicidal ideation: No Patient has homicidal ideation: No Pulmonary Medical History: Reports: Hx Asthma Neurological Medical History: Reports: Hx Migraine Renal/ Medical History: Denies: Hx Peritoneal Dialysis Musculoskeletal Medical History: Reports Hx Musculoskeletal Deformity - Scoliosis Past Surgical History: Reports: Hx Orthopedic Surgery - Rashid rods and screws - Immunizations Immunizations up to date: Yes Review of Systems - Review of Systems Constitutional: Fever EENT: Ear pain, Nose congestion, Sinus pressure Cardiovascular: No symptoms reported Respiratory: Cough Gastrointestinal: No symptoms reported Genitourinary: No symptoms reported Female Genitourinary: No symptoms reported Musculoskeletal: No symptoms reported Skin: No symptoms reported Hematologic/Lymphatic: No symptoms reported Neurological/Psychological: No symptoms reported -: Yes All other systems reviewed and negative Physical Exam - Vital signs Vitals: Temp Pulse Resp BP Pulse Ox 98.5 F 89 16 121/61 100 07/20/18 18:03 07/20/18 18:03 07/20/18 18:03 07/20/18 18:03 07/20/18 18:03 Interpretation: Normal - Notes Notes: Female, she is in no apparent distress. - General General appearance: Alert - HEENT Head: Normocephalic, Atraumatic Eyes: Normal Conjunctiva: Normal External canal: Normal. No: Blood in canal, Cerumen impaction, Erythema, Swollen Tympanic membrane: Bulging, Other - Examination of bilateral TMs show both are bulging but no air-fluid levels noted.. No: Hemotympanum, Injected, Loss of landmarks, Perforation, Purulent effusion, Retracted, Serous effusion Sinus: Maxillary, Swelling, Tenderness, Other Nasal: Swelling, Clear rhinorrhea, Other - Examination shows nasal mucosa to be moderately erythematous and edematous with rhinorrhea.. No: Normal, Purulent discharge, Septal hematoma Mouth/Lips: Normal. No: Angioedema Mucous membranes: Normal, Moist Pharynx: Erythema, Post nasal drainage, Other - Emanation posterior pharynx shows moderate erythema throughout no sign of exudate. There is some clear to light yellow postnasal drainage noted.. No: Normal, Exudate, Peritonsillar abscess, Retropharyngeal abscess, Tonsillar hypertrophy, Uvular edema, Potential airway comprom. Neck: Normal, Supple. No: Lymphadenopathy, Meningismus, Neck mass, Thyroid nodule - Respiratory Respiratory status: No respiratory distress Chest status: Nontender Breath sounds: Normal. No: Rales, Rhonchi, Stridor, Wheezing Chest palpation: Normal - Cardiovascular Rhythm: Regular Heart sounds: Normal auscultation Murmur: No - Abdominal Inspection: Gravid female Distension: No distension Bowel sounds: Normal Tenderness: Nontender Organomegaly: No organomegaly - Neurological Neuro grossly intact: Yes Cognition: Normal Orientation: AAOx4 [place] Coma Scale Eye Opening: Spontaneous Jeremy Coma Scale Verbal: Oriented [place] Coma Scale Motor: Obeys Commands [place] Coma Scale Total: 15 Speech: Normal - Skin Skin Temperature: Warm Skin Moisture: Dry Skin Color: Normal, [place] Course - Re-evaluation Re-evalutation: 07/22/18 13:22 I have explained to patient that there is limited things we can do during her and that I do not believe she has a bacterial infection. She has the normal upper respiratory cold that is going around right now. I have informed her to use some Benadryl to help alleviate the nasal congestion symptoms sneezing. Do not believe there is any indication of this to be bacterial in nature, no pharyngitis noted. Her airway is patent. Lungs are clear so at this point I believe are just treating an upper respiratory infection. She does have an COURT WORKER that is following her I have informed her to follow-up with them if the cold continues on or if she continues with high fevers in order to be treated. If she should have any concerns over the weekend she can return to the ER for a recheck and we will really assess the situation at that time. - Vital Signs Vital signs: Temp Pulse Resp BP Pulse Ox 98.5 F 89 16 121/61 100 07/20/18 18:03 10 18:03 07/20/18 18:03 07/20/18 18:03 07/20/18 18:03 Discharge - Discharge Clinical Impression: Upper respiratory infection, viral Qualifiers: Weeks of gestation: 17 weeks Qualified Code(s): Z3A.17 - 17 weeks gestation of Condition: Stable Disposition: HOME, SELF-CARE Instructions: Acetaminophen, Upper Respiratory Illness ([facility]), Viral Syndrome ( [facility]) Additional Instructions: Home and rest. As we discussed is good and bad. The good news is your bad news is your . By this I mean there is limited things you can take in your to help try to correct the respiratory cold. However you may take Benadryl 25-50 mg that is 1-2 tablets every 6 hours for the congestion runny nose. Other than that Tylenol for fever. Try this you can use some nasal saline 3-4 times a day to keep the nose moist and your secretions thin. Follow this path drinking lots of fluids and contact your OB/ BODY ARTIST Sunday morning for follow-up and further treatment if needed. Should you have any concerns over the weekend return to ER for recheck. Forms: Return to Work Referrals: SHAHEED MISHRA MD [Primary Care Provider] - Follow up as needed
== END 2018-07-20 19:15 | disposition home or self-care (01) ==
LOC: ER 17:59
DX: O26.892 Other specified pregnancy related conditions, second trimester (principal); J06.9 Acute upper respiratory infection, unspecified; B97.89 Other viral agents as the cause of diseases classified elsewhere; O21.9 Vomiting of pregnancy, unspecified; R05 Cough; R09.81 Nasal congestion; H92.09 Otalgia, unspecified ear; R09.89 Other specified symptoms and signs involving the circulatory and respiratory systems; R50.9 Fever, unspecified; Z3A.18 18 weeks gestation of pregnancy; J45.909 Unspecified asthma, uncomplicated
CPT/HCPCS: 99283

== ENCOUNTER 2018-08-11 16:08 | Outpatient (CLI) | payer OTHER, MEDICAID ==
[2018-08-11 16:41] LABS: APPEARANCE,URINE SLIGHTLY-CLOUDY; BILIRUBIN,URINE NEGATIVE (NEGATIVE); COLOR,URINE YELLOW; GLUCOSE, URINE NEGATIVE (NEGATIVE); KETONES,URINE TRACE mg/dL (NEGATIVE); LEUKOCYTE ESTERASE,URINE TRACE (NEGATIVE); NITRITE,URINE NEGATIVE (NEGATIVE); PROTEIN,URINE NEGATIVE (NEGATIVE); URINE SPECIFIC GRAVITY 1.027
[2018-08-11] MEDS ORDERED: ONDANSETRON 4 MG TAB.RAPDIS PO ONE (16:41)
[2018-08-11] MEDS ORDERED: ONDANSETRON 4 MG TAB.RAPDIS ONE (16:50)
[2018-08-11] MEDS ORDERED: ACETAMINOPHEN 325 MG TABLET PO ONE (16:51)
[2018-08-11] MEDS ORDERED: ACETAMINOPHEN 325 MG TABLET ONE (16:52)
[2018-08-11 17:02] LABS: URINE AMPHETAMINES SCREEN NEGATIVE; URINE BARBITURATES SCREEN NEGATIVE; URINE BENZODIAZEPINES SCREEN NEGATIVE; URINE COCAINE SCREEN NEGATIVE; URINE MARIJUANA (THC) SCREEN NEGATIVE; URINE METHADONE SCREEN NEGATIVE; URINE PHENCYCLIDINE SCREEN NEGATIVE
== END 2018-08-11 17:59 | disposition home or self-care (01) ==
LOC: LC 16:08
PROVIDERS: ATTEND Obstetrics & Gynecology Gynecology
PROC: 4A1HXCZ Monitoring of Products of Conception, Cardiac Rate, External Approach (ICD-10-PCS; principal; 2018-08-11)
DX: O47.02 False labor before 37 completed weeks of gestation, second trimester (principal); O99.282 Endocrine, nutritional and metabolic diseases complicating pregnancy, second trimester; E86.0 Dehydration; O99.89 Other specified diseases and conditions complicating pregnancy, childbirth and the puerperium; R11.2 Nausea with vomiting, unspecified; M54.9 Dorsalgia, unspecified; Z3A.20 20 weeks gestation of pregnancy
CPT/HCPCS: 59899; 81001; 80307; S0119

== ENCOUNTER 2018-08-11 18:05 | Emergency (ER) | payer OTHER, MEDICAID ==
[2018-08-11] MEDS ORDERED: NORMAL SALINE 1000 ML 1,000 ML IV ONE (18:33)
--- NOTE | 2018-08-11 18:33 | ER Document Report ---
ED Medical Screen (RME) - General Chief Complaint: Abdominal Pain Stated Complaint: ABDOMINAL PAIN Time Seen by Provider: 08/11/18 18:31 Notes: Patient is a 27-year-old female, , 21 weeks gravid that presents to the emergency department for chief complaint of right sided abdominal pain and right flank pain that started today associated nausea and vomiting, she was seen by labor and delivery, and observed and given Tylenol and Zofran, and advised to come to the emergency department for further evaluation for etiology of her cause of pain. ROS: Unless otherwise stated in this report the patient's positive and negative responses for review of systems for constitutional, eyes, ENT, cardiovascular, respiratory, gastrointestinal, neurological, genitourinary, musculoskeletal, and integumentary systems and related systems to the presenting problem are either as stated in the HPI or were not pertinent or were negative for the symptoms and/or complaints related to the presenting medical problem. PHYSICAL EXAMINATION: Vital signs reviewed. GENERAL: Well-appearing, well-nourished and appears uncomfortable HEAD: Atraumatic, normocephalic. EYES: Pupils equal round extraocular movements intact, conjunctiva are normal. ENT: Nares patent NECK: Normal range of motion CV: Heart regular rate and rhythm LUNGS: No respiratory distress Musculoskeletal: Normal range of motion NEUROLOGICAL: Normal speech PSYCH: Normal mood, normal affect. MDM: Patient seen and examined for rapid initial assessment. Vital signs reviewed. A comprehensive ED assessment and evaluation of the patient, analysis of test results and completion of the medical decision making process will be conducted by additional ED providers. *Note is created using voice recognition software and may contain spelling, syntax or grammatical errors. TRAVEL OUTSIDE OF THE [place] IN LAST 30 DAYS: No - Related Data Allergies/Adverse Reactions: Penicillins Allergy (Verified 07/20/18 18:00) Past Medical History Pulmonary Medical History: Reports: Hx Asthma Neurological Medical History: Reports: Hx Migraine Renal/ Medical History: Denies: Hx Peritoneal Dialysis Musculoskeltal Medical History: Reports Hx Musculoskeletal Deformity - Scoliosis Past Surgical History: Reports: Hx Orthopedic Surgery - Rashid rods and screws - Immunizations Immunizations up to date: Yes Physical Exam - Vital signs Vitals: Temp Pulse Resp BP Pulse Ox 98.3 F 69 18 108/61 100 08/11/18 18:11 08/11/18 18:11 08/11/18 18:11 08/11/18 18:11 08/11/18 18:11 Course - Vital Signs Vital signs: Temp Pulse Resp BP Pulse Ox 98.3 F 69 18 108/61 100 08/11/18 18:11 08/11/18 18:11 08/11/18 18:11 08/11/18 18:11 08/11/18 18:11
[2018-08-11 19:30] LABS: APPEARANCE,URINE CLEAR; BILIRUBIN,URINE NEGATIVE (NEGATIVE); COLOR,URINE YELLOW; GLUCOSE, URINE NEGATIVE (NEGATIVE); KETONES,URINE NEGATIVE (NEGATIVE); LEUKOCYTE ESTERASE,URINE NEGATIVE (NEGATIVE); NITRITE,URINE NEGATIVE (NEGATIVE); PROTEIN,URINE NEGATIVE (NEGATIVE); URINE SPECIFIC GRAVITY 1.018
[2018-08-11 20:20] LABS: ABSOLUTE BASOPHILS # (AUTO) 0.1 10^3/uL (0.0-0.2); ABSOLUTE EOSINOPHILS # (AUTO) 0.1 10^3/uL (0.0-0.6); ABSOLUTE LYMPHOCYTES (AUTO) 2.4 10^3/uL (0.5-4.7); ABSOLUTE MONOCYTES (AUTO) 0.6 10^3/uL (0.1-1.4); ABSOLUTE NEUT (AUTO) 6.9 10^3/uL (1.7-8.2); BASOPHILS % (AUTO) 0.6 % (0-2); EOSINOPHILS % (AUTO) 0.7 % (0-6); HEMOGLOBIN 12.1 g/dL (12.0-15.5); LYMPHOCYTES % (AUTO) 23.8 % (13-45); MEAN CORPUSCULAR HEMOGLOBIN 30.6 pg (27.0-33.4); MEAN CORPUSCULAR HGB CONC 33.5 g/dL (32.0-36.0); MEAN CORPUSCULAR VOLUME 91 fl (80-97); MONOCYTES % (AUTO) 5.8 % (3-13); PLATELET COUNT 276 10^3/uL (150-450); RED BLOOD COUNT 3.94 10^6/uL (3.72-5.28); RED CELL DISTRIBUTION WIDTH 13.3 % (11.5-14.0); SEGMENTED NEUTROPHILS % (AUTO) 69.1 % (42-78); TOTAL CELLS COUNTED % (AUTO) 100 %
[2018-08-11 20:34] LABS: ALANINE AMINOTRANSFERASE 53 U/L (9-52); ALBUMIN 3.4 g/dL (3.5-5.0); ALKALINE PHOSPHATASE 65 U/L (38-126); ANION GAP 11 (5-19); ASPARTATE AMINO TRANSFERASE 29 U/L (14-36); BILIRUBIN,DIRECT 0.2 mg/dL (0.0-0.4); BILIRUBIN,TOTAL 0.3 mg/dL (0.2-1.3); BLOOD UREA NITROGEN 11 mg/dL (7-20); CALCIUM 9.3 mg/dL (8.4-10.2); CARBON DIOXIDE 24 mmol/L (22-30); CHLORIDE 102 mmol/L (98-107); GLUCOSE 72 mg/dL (75-110); LIPASE 74.8 U/L (23-300); POTASSIUM 4.3 mmol/L (3.6-5.0); SODIUM 136.9 mmol/L (137-145); TOTAL PROTEIN 6.3 g/dL (6.3-8.2)
--- NOTE | 2018-08-11 22:00 | ER Document Report ---
ED General - General Chief Complaint: Abdominal Pain Stated Complaint: ABDOMINAL PAIN Time Seen by Provider: 08/11/18 18:31 Notes: Patient is a 27-year-old female currently 21 weeks who presents with right lower abdominal and right flank pain that started just prior to arrival and has now resolved. She describes that pain as being a stabbing, severe pain that came on after she was folding laundry. She states that the pain has resolved spontaneously. Denies a history of similar pain in the past. Nothing seemed to improve or worsen the pain when present. Denies any associated vaginal bleeding or new vaginal discharge. No dysuria. No fever, nausea or vomiting. She has not contacted her TELECOMMUNICATIONS CLERK regarding this concern. TRAVEL OUTSIDE OF THE [place] IN LAST 30 DAYS: No - Related Data Allergies/Adverse Reactions: Penicillins Allergy (Verified 07/20/18 18:00) Past Medical History - General Information source: Patient - Social History Smoking Status: Never Smoker Frequency of alcohol use: None Drug Abuse: None Lives with: Spouse/Significant other Family History: Reviewed & Not Pertinent Patient has suicidal ideation: No Patient has homicidal ideation: No Pulmonary Medical History: Reports: Hx Asthma Neurological Medical History: Reports: Hx Migraine Renal/ Medical History: Denies: Hx Peritoneal Dialysis Musculoskeletal Medical History: Reports Hx Musculoskeletal Deformity - Scoliosis Past Surgical History: Reports: Hx Orthopedic Surgery - Rashid rods and screws - Immunizations Immunizations up to date: Yes Review of Systems - Review of Systems Notes: Constitutional: Negative for fever. HENT: Negative for sore throat. Eyes: Negative for visual changes. Cardiovascular: Negative for chest pain. Respiratory: Negative for shortness of breath. Gastrointestinal: Positive for abdominal pain Genitourinary: Negative for dysuria. Musculoskeletal: Negative for back pain. Skin: Negative for rash. Neurological: Negative for headaches, weakness or numbness. 10 point ROS negative except as marked above and in HPI. Physical Exam - Vital signs Vitals: Temp Pulse Resp BP Pulse Ox 98.3 F 69 18 108/61 100 08/11/18 18:11 08/11/18 18:11 08/11/18 18:11 08/11/18 18:11 08/11/18 18:11 Interpretation: Normal Notes: PHYSICAL EXAMINATION: GENERAL: Well-appearing, well-nourished and in no acute distress. HEAD: Atraumatic, normocephalic. EYES: Pupils equal round and reactive to light, extraocular movements intact, sclera anicteric, conjunctiva are normal. ENT: nares patent, oropharynx clear without exudates. Moist mucous membranes. NECK: Normal range of motion, supple without lymphadenopathy LUNGS: Breath sounds clear to auscultation bilaterally and equal. No wheezes rales or rhonchi. HEART: Regular rate and rhythm without murmurs ABDOMEN: Soft, gravid uterus, nontender, normoactive bowel sounds. No guarding , no rebound. No masses appreciated. EXTREMITIES: Normal range of motion, no pitting or edema. No cyanosis. NEUROLOGICAL: No focal neurological deficits. Moves all extremities spontaneously and on command. PSYCH: Normal mood, normal affect. SKIN: Warm, Dry, normal turgor, no rashes or lesions noted. Course - Re-evaluation Re-evalutation: 08/11/18 22:00 Patient is currently and presenting with lower abdominal pain. No vaginal bleeding or discharge. Bedside ultrasound shows a viable intrauterine , appropriate cardiac activity and active movement. Patient denies any dysuria and urinalysis is not consistent with an acute urinary tract infection. The patient does not have any focal right lower quadrant tenderness, rebound or guarding to suggest acute appendicitis. No right upper quadrant tenderness to suggest cholestasis of or an acute cholecystitis. Patient has tolerated oral intake here in the emergency department without difficulty. Vitals are within normal limits. At this time will discharge with return precautions and follow-up recommendations. Verbal discharge instructions given a the bedside and opportunity for questions given. Medication warnings reviewed. Patient is in agreement with this plan and has verbalized understanding of return precautions and the need for primary care follow-up in the next 24-72 hours. - Vital Signs Vital signs: Temp Pulse Resp BP Pulse Ox 98.2 F 77 20 103/49 L 100 08/11/18 22:11 08/11/18 22:11 08/11/18 22:11 08/11/18 22:11 08/11/18 22:11 - Laboratory Result Diagrams: 08/11/18 20:10 08/11/18 20:10 Laboratory results interpreted by me: 08/11/18 08/11/18 18:53 20:10 Sodium 136.9 L Creatinine 0.44 L Glucose 72 L ALT 53 H Albumin 3.4 L Urine Urobilinogen 4.0 H Discharge - Discharge Clinical Impression: Right lower quadrant abdominal pain, related abdominal pain of lower quadrant, antepartum Condition: Good Disposition: HOME, SELF-CARE Additional Instructions: You were seen for abdominal pain during . Your ultrasound and labs are normal today. The exact cause your pain is uncertain but is likely related to your developing baby. Please follow-up with your TELECOMMUNICATIONS CLERK in the next 24-48 hours. Return to the emergency department immediately if you have worsening of your pain, have persistent vomiting, develop a fever of greater than 100.4F, begin to have vaginal bleeding, or any other symptoms that are worrisome to you.
[2018-08-11 22:12] VITALS: BP 103/49
== END 2018-08-11 22:12 | disposition home or self-care (01) ==
LOC: ER 18:05
DX: O26.892 Other specified pregnancy related conditions, second trimester (principal); R10.31 Right lower quadrant pain; O99.512 Diseases of the respiratory system complicating pregnancy, second trimester; J45.909 Unspecified asthma, uncomplicated; Z3A.21 21 weeks gestation of pregnancy; Z88.0 Allergy status to penicillin
CPT/HCPCS: 99284; 36415; 87086; 83690; 85025; 80053; 81001; J7030

== ENCOUNTER 2018-09-01 17:34 | Emergency (ER) | payer OTHER, MEDICAID ==
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
[2018-09-01 19:16] LABS: ABSOLUTE BASOPHILS # (AUTO) 0.1 10^3/uL (0.0-0.2); ABSOLUTE EOSINOPHILS # (AUTO) 0.1 10^3/uL (0.0-0.6); ABSOLUTE MONOCYTES (AUTO) 0.8 10^3/uL (0.1-1.4); ABSOLUTE NEUT (AUTO) 8.6 10^3/uL (1.7-8.2); BASOPHILS % (AUTO) 0.6 % (0-2); EOSINOPHILS % (AUTO) 0.5 % (0-6); HEMATOCRIT 33.8 % (36.0-47.0); HEMOGLOBIN 11.5 g/dL (12.0-15.5); MEAN CORPUSCULAR HEMOGLOBIN 30.5 pg (27.0-33.4); MEAN CORPUSCULAR HGB CONC 33.9 g/dL (32.0-36.0); MEAN CORPUSCULAR VOLUME 90 fl (80-97); MONOCYTES % (AUTO) 7.1 % (3-13); PLATELET COUNT 291 10^3/uL (150-450); RED BLOOD COUNT 3.76 10^6/uL (3.72-5.28); RED CELL DISTRIBUTION WIDTH 13.1 % (11.5-14.0); SEGMENTED NEUTROPHILS % (AUTO) 74.8 % (42-78); TOTAL CELLS COUNTED % (AUTO) 100 %; WHITE BLOOD COUNT 11.5 10^3/uL (4.0-10.5)
[2018-09-01 19:26] LABS: APPEARANCE,URINE CLOUDY; BILIRUBIN,URINE NEGATIVE (NEGATIVE); CALCIUM OXALATE CRYSTALS,URINE FEW /HPF; COLOR,URINE YELLOW; GLUCOSE, URINE NEGATIVE (NEGATIVE); KETONES,URINE NEGATIVE (NEGATIVE); LEUKOCYTE ESTERASE,URINE NEGATIVE (NEGATIVE); NITRITE,URINE NEGATIVE (NEGATIVE); PROTEIN,URINE NEGATIVE (NEGATIVE); URINE SPECIFIC GRAVITY 1.019; UROBILINOGEN,URINE NEGATIVE mg/dL (<2.0)
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
[2018-09-01 19:33] LABS: ALANINE AMINOTRANSFERASE 52 U/L (9-52); ALBUMIN 3.4 g/dL (3.5-5.0); ALKALINE PHOSPHATASE 65 U/L (38-126); ANION GAP 10 (5-19); ASPARTATE AMINO TRANSFERASE 36 U/L (14-36); BILIRUBIN,DIRECT 0.2 mg/dL (0.0-0.4); BILIRUBIN,TOTAL 0.4 mg/dL (0.2-1.3); BLOOD UREA NITROGEN 11 mg/dL (7-20); CALCIUM 8.9 mg/dL (8.4-10.2); CARBON DIOXIDE 23 mmol/L (22-30); CHLORIDE 105 mmol/L (98-107); GLUCOSE 82 mg/dL (75-110); POTASSIUM 3.9 mmol/L (3.6-5.0); SODIUM 137.5 mmol/L (137-145); TOTAL PROTEIN 6.1 g/dL (6.3-8.2)
[2018-09-01] MEDS ORDERED: ACETAMINOPHEN 325 MG TABLET PO ONE (19:34)
[2018-09-01 20:47] VITALS: BP 106/54
== END 2018-09-01 20:46 | disposition home or self-care (01) ==
LOC: ER 17:34
DX: O26.851 Spotting complicating pregnancy, first trimester (principal); O26.891 Other specified pregnancy related conditions, first trimester; N94.89 Other specified conditions associated with female genital organs and menstrual cycle; Y04.2XXA Assault by strike against or bumped into by another person, initial encounter; Y04.8XXA Assault by other bodily force, initial encounter; Y93.89 Activity, other specified; Y92.009 Unspecified place in unspecified non-institutional (private) residence as the place of occurrence of the external cause; O99.511 Diseases of the respiratory system complicating pregnancy, first trimester; J45.909 Unspecified asthma, uncomplicated; Z3A.13 13 weeks gestation of pregnancy; Z88.0 Allergy status to penicillin
CPT/HCPCS: 36415; 76805; 80053; 81001; 84702; 85025; 93976; 99284

== ENCOUNTER 2018-09-27 16:00 | Outpatient (CLI) | payer OTHER, MEDICAID ==
[2018-09-27 16:54] LABS: AMORPHOUS SEDIMENT,URINE TRACE /HPF; APPEARANCE,URINE CLOUDY; BILIRUBIN,URINE NEGATIVE (NEGATIVE); COLOR,URINE YELLOW; GLUCOSE, URINE NEGATIVE (NEGATIVE); KETONES,URINE NEGATIVE (NEGATIVE); LEUKOCYTE ESTERASE,URINE TRACE (NEGATIVE); NITRITE,URINE NEGATIVE (NEGATIVE); PROTEIN,URINE NEGATIVE (NEGATIVE); URINE SPECIFIC GRAVITY 1.016; UROBILINOGEN,URINE NEGATIVE mg/dL (<2.0)
[2018-09-27 17:08] LABS: A TYPE INFLUENZA AG NEGATIVE (NEGATIVE); B INFLUENZA AG NEGATIVE (NEGATIVE)
[2018-09-27 17:14] LABS: URINE AMPHETAMINES SCREEN NEGATIVE; URINE BARBITURATES SCREEN NEGATIVE; URINE BENZODIAZEPINES SCREEN NEGATIVE; URINE COCAINE SCREEN NEGATIVE; URINE MARIJUANA (THC) SCREEN NEGATIVE; URINE METHADONE SCREEN NEGATIVE; URINE PHENCYCLIDINE SCREEN NEGATIVE
[2018-09-27] MEDS ORDERED: CLINDAMYCIN PHOSPHATE 900 MG in DEXTROSE 5%-WATER 100 ML IV ONE (17:15)
[2018-09-27] MEDS ORDERED: CLINDAMYCIN 900 MG/D5W RTU 900 MG/50 ML RTUPB IV PRN (17:20)
[2018-09-27] MEDS ORDERED: CLINDAMYCIN 900 MG/D5W RTU 900 MG/50 ML RTUPB IV ONE (17:33)
[2018-09-27] MEDS ORDERED: ONDANSETRON HCL INJ/PF 4 MG/2 ML SDV ONE (18:15)
[2018-09-27] MEDS ORDERED: ONDANSETRON HCL INJ/PF 4 MG/2 ML SDV IV ONE (18:18)
[2018-09-27] MEDS ORDERED: NALBUPHINE HCL INJ 10 MG/1 ML AMPULE ONE (19:47)
[2018-09-27] MEDS ORDERED: NALBUPHINE HCL INJ 10 MG/1 ML AMPULE INJ ONE (19:47)
[2018-09-27 20:25] LABS: ABSOLUTE BASOPHILS # (AUTO) 0.1 10^3/uL (0.0-0.2); ABSOLUTE EOSINOPHILS # (AUTO) 0.1 10^3/uL (0.0-0.6); ABSOLUTE LYMPHOCYTES (AUTO) 2.1 10^3/uL (0.5-4.7); ABSOLUTE MONOCYTES (AUTO) 0.8 10^3/uL (0.1-1.4); ABSOLUTE NEUT (AUTO) 7.8 10^3/uL (1.7-8.2); BASOPHILS % (AUTO) 0.7 % (0-2); EOSINOPHILS % (AUTO) 1.3 % (0-6); HEMATOCRIT 32.5 % (36.0-47.0); HEMOGLOBIN 11.1 g/dL (12.0-15.5); LYMPHOCYTES % (AUTO) 19.3 % (13-45); MEAN CORPUSCULAR HEMOGLOBIN 30.4 pg (27.0-33.4); MEAN CORPUSCULAR HGB CONC 34.1 g/dL (32.0-36.0); MEAN CORPUSCULAR VOLUME 89 fl (80-97); MONOCYTES % (AUTO) 7.5 % (3-13); PLATELET COUNT 265 10^3/uL (150-450); RED BLOOD COUNT 3.64 10^6/uL (3.72-5.28); RED CELL DISTRIBUTION WIDTH 13.1 % (11.5-14.0); SEGMENTED NEUTROPHILS % (AUTO) 71.2 % (42-78); TOTAL CELLS COUNTED % (AUTO) 100 %; WHITE BLOOD COUNT 10.9 10^3/uL (4.0-10.5)
[2018-09-27 20:37] LABS: ALANINE AMINOTRANSFERASE 28 U/L (9-52); ALBUMIN 3.1 g/dL (3.5-5.0); ALKALINE PHOSPHATASE 87 U/L (38-126); ASPARTATE AMINO TRANSFERASE 22 U/L (14-36); BILIRUBIN,DIRECT 0.1 mg/dL (0.0-0.4); BILIRUBIN,TOTAL 0.2 mg/dL (0.2-1.3); BLOOD UREA NITROGEN 8 mg/dL (7-20); CALCIUM 8.9 mg/dL (8.4-10.2); GLUCOSE 89 mg/dL (75-110); POTASSIUM 3.6 mmol/L (3.6-5.0); TOTAL PROTEIN 5.5 g/dL (6.3-8.2)
[2018-09-27 21:08] LABS: CARBON DIOXIDE 23 mmol/L (22-30); CHLORIDE 108 mmol/L (98-107); SODIUM 135.7 mmol/L (137-145)
[2018-09-27 21:09] LABS: ANION GAP 5 (5-19)
--- NOTE | 2018-09-27 21:30 | RADIOLOGY REPORT (SQ) ---
CLINICAL HISTORY: CVA tenderness COMPARISON: None. TECHNIQUE: US RETROPERITONEUM on 09/27/2018 12:00 AM REPACK ROOM WORKER FINDINGS: Right kidney measures 12.1 cm in greatest dimension. There is mild hydronephrosis. There is suggestion of multiple small echogenic foci. Left kidney measures 13.0 cm without hydronephrosis. Foci are noted largest measuring 1.6 cm. Urinary bladder contains a large amount of urine. IMPRESSION: Right hydronephrosis with probable bilateral nephrolithiasis. Recommend CT.
--- NOTE | 2018-09-27 21:46 | L&D Progress Notes ---
PROGRESS NOTES Datetime Report Generated by CPN: 09/27/2018 21:45 PROGRESS NOTE Procedures- Other: monitoring Plan: Discharge Vital Signs : Reviewed; Within Normal Limits Comment: Pt c/o left sided back pain. It was actually CVA tenderness. Trace blood in urine. Renal US obtained which was suggestive small bilateral lithiasis. CBC and CMP normal. Pt given a hat w/strainer and cup for collection. She is less painful now. Cervix closed. Will f/u as scheduled or sooner if needed. VAGINAL EXAM Dilatation: closed Effacement: thick Station: high Contractions: irregular LAST VAGINAL EXAM-NURSING Contractions: applied FETUS A FHR - Baseline: 140s Monitoring: External US Variability: Moderate 6-25bpm Accelerations: 15X15 Decelerations: None FHR Category: Category I : 27.1 SIGNATURE SIGNATURE: [id number] Signature: with User ID: [email or web address]
== END 2018-09-27 23:30 | disposition home or self-care (01) ==
LOC: LC 16:00
PROVIDERS: ATTEND Obstetrics & Gynecology
PROC: 4A1HXCZ Monitoring of Products of Conception, Cardiac Rate, External Approach (ICD-10-PCS; principal; 2018-09-27)
DX: O47.02 False labor before 37 completed weeks of gestation, second trimester (principal); O99.89 Other specified diseases and conditions complicating pregnancy, childbirth and the puerperium; M54.9 Dorsalgia, unspecified; N13.30 Unspecified hydronephrosis; Z3A.27 27 weeks gestation of pregnancy
CPT/HCPCS: 59899; 36415; 87070; 87880; 85025; 80053; 81001; 80307; 87804; 76770; J2300; J2405

== ENCOUNTER 2018-10-03 15:07 | Outpatient (CLI) | payer OTHER, MEDICAID ==
[2018-10-03 15:54] LABS: APPEARANCE,URINE SLIGHTLY-CLOUDY; BILIRUBIN,URINE NEGATIVE (NEGATIVE); COLOR,URINE YELLOW; GLUCOSE, URINE NEGATIVE (NEGATIVE); KETONES,URINE NEGATIVE (NEGATIVE); LEUKOCYTE ESTERASE,URINE NEGATIVE (NEGATIVE); NITRITE,URINE NEGATIVE (NEGATIVE); PROTEIN,URINE NEGATIVE (NEGATIVE); URINE SPECIFIC GRAVITY 1.012; UROBILINOGEN,URINE NEGATIVE mg/dL (<2.0)
[2018-10-03 16:10] LABS: URINE AMPHETAMINES SCREEN NEGATIVE; URINE BARBITURATES SCREEN NEGATIVE; URINE BENZODIAZEPINES SCREEN NEGATIVE; URINE COCAINE SCREEN NEGATIVE; URINE MARIJUANA (THC) SCREEN NEGATIVE; URINE METHADONE SCREEN NEGATIVE; URINE PHENCYCLIDINE SCREEN NEGATIVE
--- NOTE | 2018-10-03 17:17 | RADIOLOGY REPORT (SQ) ---
EXAM DESCRIPTION: U/S OB LIMITED COMPLETED DATE/TIME: 10/03/2018 5:04 pm REASON FOR STUDY: PTL COMPARISON: None. TECHNIQUE: Limited transabdominal grayscale ultrasound for evaluation of specific requested obstetri estelle parameters. LIMITATIONS: None. FINDINGS: CERVICAL LENGTH: 3.7 cm Closed. NIELS: not assessed cm. FHR: 137 beats per minute. PRESENTATION: Cephalic. PLACENTA: Fundal ANATOMY: Not assessed OTHER: No other significant findings. IMPRESSION: LIMITED OBSTETRICAL ULTRASOUND WITH MEASURED PARAMETERS DELINEATED ABOVE. Trimester of : Third trimester - 28 weeks to delivery. TECHNICAL DOCUMENTATION: JOB ID: [id number] [employer]- All Rights Reserved Reading location - IP/workstation name: [email or web address]
[2018-10-03 17:23] LABS: BACTERIA (WET MOUNT) 4+ BACTERIA SEEN; EPITHELIALS (WET MOUNT) 3+ EPITHELIALS SEEN; RBCS (WET MOUNT) NO RBCS SEEN; T.VAGINALIS (WET MOUNT) NO TRICHOMONAS SEEN; WBCS (WET MOUNT) 3+ WBCS SEEN; YEAST (WET MOUNT) NO YEAST SEEN
[2018-10-03] MEDS ORDERED: NALBUPHINE HCL INJ 10 MG/1 ML AMPULE IM ONE (17:29)
[2018-10-03] MEDS ORDERED: NALBUPHINE HCL INJ 10 MG/1 ML AMPULE ONE (17:31)
--- NOTE | 2018-10-03 18:03 | L&D Progress Notes ---
PROGRESS NOTES Datetime Report Generated by CPN: 10/03/2018 18:03 PROGRESS NOTE Impression: Reactive Non Stress Test Impression Other: irregulat contractions Procedures: Ultrasound Plan: Continue Present Management; Discharge Vital Signs : Reviewed; Within Normal Limits Comment: Pt c/o low back pain and cramping. Her FFN pending but CL 3.8 cm per formal bedside. Her vaginal cultures are pending. Pt given Nubain 5 mg IM, which her discomfort. Will d/c home and call pt if STD cultures positive. VAGINAL EXAM Dilatation: cl Effacement: thick Station: high MEMBRANES Membranes: Intact FETUS A FHR - Baseline: 140s Monitoring: External US Variability: Moderate 6-25bpm Accelerations: 15X15 Decelerations: None FHR Category: Category I : 28.0 SIGNATURE SIGNATURE: [id number] Signature: with User ID: [email or web address]
[2018-10-03 18:50] LABS: CHLAM PCR NOT DETECTED (NOT DETECT); GON PCR NOT DETECTED (NOT DETECT)
== END 2018-10-03 18:19 | disposition home or self-care (01) ==
LOC: LC 15:07
PROVIDERS: ATTEND Obstetrics & Gynecology
DX: O60.03 Preterm labor without delivery, third trimester (principal); Z3A.28 28 weeks gestation of pregnancy
CPT/HCPCS: 87210; 81001; 80307; 87491; 87591; 82731; 76815; J2300

== ENCOUNTER 2018-10-26 00:36 | Outpatient (CLI) | payer OTHER, MEDICAID ==
[2018-10-26 01:04] LABS: APPEARANCE,URINE SLIGHTLY-CLOUDY; BILIRUBIN,URINE NEGATIVE (NEGATIVE); COLOR,URINE YELLOW; GLUCOSE, URINE NEGATIVE (NEGATIVE); KETONES,URINE NEGATIVE (NEGATIVE); LEUKOCYTE ESTERASE,URINE NEGATIVE (NEGATIVE); NITRITE,URINE NEGATIVE (NEGATIVE); PROTEIN,URINE NEGATIVE (NEGATIVE); URINE SPECIFIC GRAVITY 1.014; UROBILINOGEN,URINE NEGATIVE mg/dL (<2.0)
[2018-10-26 01:20] LABS: URINE AMPHETAMINES SCREEN NEGATIVE; URINE BARBITURATES SCREEN NEGATIVE; URINE BENZODIAZEPINES SCREEN NEGATIVE; URINE COCAINE SCREEN NEGATIVE; URINE MARIJUANA (THC) SCREEN NEGATIVE; URINE METHADONE SCREEN NEGATIVE; URINE PHENCYCLIDINE SCREEN NEGATIVE
[2018-10-26] MEDS ORDERED: NALBUPHINE HCL INJ 10 MG/1 ML AMPULE ONE (01:49)
[2018-10-26] MEDS ORDERED: NALBUPHINE HCL INJ 10 MG/1 ML AMPULE INJ ONE (02:00)
== END 2018-10-26 01:41 | disposition home or self-care (01) ==
LOC: LC 00:36
PROVIDERS: ATTEND Obstetrics & Gynecology
PROC: 4A1HXCZ Monitoring of Products of Conception, Cardiac Rate, External Approach (ICD-10-PCS; principal; 2018-10-26)
DX: O47.03 False labor before 37 completed weeks of gestation, third trimester (principal); Z3A.31 31 weeks gestation of pregnancy
CPT/HCPCS: 81001; 80307; 59899; J2300

== ENCOUNTER 2018-11-19 00:48 | Outpatient (CLI) | payer OTHER, MEDICAID ==
[2018-11-19 01:27] LABS: APPEARANCE,URINE CLOUDY; BILIRUBIN,URINE NEGATIVE (NEGATIVE); COLOR,URINE YELLOW; GLUCOSE, URINE NEGATIVE (NEGATIVE); KETONES,URINE NEGATIVE (NEGATIVE); LEUKOCYTE ESTERASE,URINE TRACE (NEGATIVE); NITRITE,URINE NEGATIVE (NEGATIVE); PROTEIN,URINE NEGATIVE (NEGATIVE); URINE SPECIFIC GRAVITY 1.014; UROBILINOGEN,URINE NEGATIVE mg/dL (<2.0)
[2018-11-19] MEDS ORDERED: ACETAMINOPHEN 325 MG TABLET ONE (01:36)
[2018-11-19] MEDS ORDERED: HYDROXYZINE PAMOATE 50 MG CAPSULE ONE (01:36)
[2018-11-19] MEDS ORDERED: RINGERS SOLUTION,LACTATED 1,000 ML IV PRN (01:37)
[2018-11-19] MEDS ORDERED: HYDROXYZINE PAMOATE 50 MG CAPSULE PO ONE (01:38)
[2018-11-19] MEDS ORDERED: ACETAMINOPHEN 325 MG TABLET PO ONE (01:38)
[2018-11-19 01:46] LABS: URINE AMPHETAMINES SCREEN NEGATIVE; URINE BARBITURATES SCREEN NEGATIVE; URINE BENZODIAZEPINES SCREEN NEGATIVE; URINE COCAINE SCREEN NEGATIVE; URINE MARIJUANA (THC) SCREEN NEGATIVE; URINE METHADONE SCREEN NEGATIVE; URINE PHENCYCLIDINE SCREEN NEGATIVE
--- NOTE | 2018-11-19 03:24 | Non Stress Test Report ---
Non Stress Test Datetime Report Generated by CPN: 11/19/2018 03:23 DEMOGRAPHIC Test Number: 2 EGA NST: 34.5 INDICATION Indication for Study: Ordered by Provider MONITORING Monitor Explained: Monitor Explained; Test Explained; Patient Verbalized Understanding Time on Monitor: 11/19/2018 02:19 Time off Monitor: 11/19/2018 02:48 NST Duration: 29 NST INTERVENTIONS NST Interventions: IV Fluids; Reposition Patient Physician Notified NST: Dr. Hawk BABY A: [id number] BABY A Movement : Present Contraction Frequency : irregular FHR Baseline : 135 Accelerations : 15X15 Decelerations : None Variability : Moderate 6-25bpm NST Review: Meets Criteria for Reactive NST NST Review and Verified By : FABRICIO Fraser NST Results: Reactive NST Results: Reactive NST REPORT Report Trigger: Send Report
== END 2018-11-19 03:17 | disposition home or self-care (01) ==
LOC: LC 00:48
PROVIDERS: ATTEND Obstetrics & Gynecology
PROC: 4A1HXCZ Monitoring of Products of Conception, Cardiac Rate, External Approach (ICD-10-PCS; principal; 2018-11-19)
DX: O47.03 False labor before 37 completed weeks of gestation, third trimester (principal); Z3A.34 34 weeks gestation of pregnancy
CPT/HCPCS: 80307; 81001

== ENCOUNTER 2018-12-02 14:48 | Outpatient (CLI) | payer OTHER, MEDICAID ==
[2018-12-02 15:55] LABS: APPEARANCE,URINE CLOUDY; BILIRUBIN,URINE NEGATIVE (NEGATIVE); COLOR,URINE YELLOW; GLUCOSE, URINE NEGATIVE (NEGATIVE); KETONES,URINE NEGATIVE (NEGATIVE); LEUKOCYTE ESTERASE,URINE NEGATIVE (NEGATIVE); NITRITE,URINE NEGATIVE (NEGATIVE); PROTEIN,URINE NEGATIVE (NEGATIVE); URINE SPECIFIC GRAVITY 1.013
[2018-12-02] MEDS ORDERED: PROMETHAZINE HCL INJ 25 MG/1 ML VIAL ONE (16:07)
[2018-12-02] MEDS ORDERED: DEXTROSE 5%-LACTATED RINGERS 1,000 ML IV PRN (16:13)
[2018-12-02] MEDS ORDERED: PROMETHAZINE HCL INJ 25 MG/1 ML VIAL IV ONE (16:14)
[2018-12-02 16:22] LABS: URINE AMPHETAMINES SCREEN NEGATIVE; URINE BARBITURATES SCREEN NEGATIVE; URINE BENZODIAZEPINES SCREEN NEGATIVE; URINE COCAINE SCREEN NEGATIVE; URINE MARIJUANA (THC) SCREEN NEGATIVE; URINE METHADONE SCREEN NEGATIVE; URINE PHENCYCLIDINE SCREEN NEGATIVE
--- NOTE | 2018-12-02 17:53 | Non Stress Test Report ---
Non Stress Test Datetime Report Generated by CPN: 12/02/2018 17:53 DEMOGRAPHIC EGA NST: 36.4 INDICATION Indication for Study: Ordered by Provider MONITORING Monitor Explained: Monitor Explained; Test Explained; Patient Verbalized Understanding Time on Monitor: 12/02/2018 15:06 Time off Monitor: 12/02/2018 17:22 NST Duration: 136 NST INTERVENTIONS NST Interventions: PO Hydration; Reposition Patient Physician Notified NST: Dr. Hawk BABY A: [id number] BABY A Movement : Present Contraction Frequency : rare FHR Baseline : 150 Accelerations : 15X15 Decelerations : None Variability : Moderate 6-25bpm NST Review: Meets Criteria for Reactive NST NST Review and Verified By : Theo Uribe RN NST Results: Reactive NST REPORT Report Trigger: Send Report
== END 2018-12-02 17:37 | disposition home or self-care (01) ==
LOC: LC 14:48
PROVIDERS: ATTEND Obstetrics & Gynecology
PROC: 4A1HXCZ Monitoring of Products of Conception, Cardiac Rate, External Approach (ICD-10-PCS; principal; 2018-12-02)
DX: O99.613 Diseases of the digestive system complicating pregnancy, third trimester (principal); K52.9 Noninfective gastroenteritis and colitis, unspecified; O99.283 Endocrine, nutritional and metabolic diseases complicating pregnancy, third trimester; E86.0 Dehydration; Z3A.36 36 weeks gestation of pregnancy
CPT/HCPCS: 59025; 81001; 80307; J2550

== ENCOUNTER 2018-12-06 14:34 | Outpatient (CLI) | payer OTHER, MEDICAID ==
[2018-12-06 15:42] LABS: APPEARANCE,URINE SLIGHTLY-CLOUDY; BILIRUBIN,URINE NEGATIVE (NEGATIVE); COLOR,URINE YELLOW; GLUCOSE, URINE NEGATIVE (NEGATIVE); KETONES,URINE NEGATIVE (NEGATIVE); LEUKOCYTE ESTERASE,URINE NEGATIVE (NEGATIVE); NITRITE,URINE NEGATIVE (NEGATIVE); PROTEIN,URINE NEGATIVE (NEGATIVE); URINE SPECIFIC GRAVITY 1.014
--- NOTE | 2018-12-06 16:18 | Non Stress Test Report ---
Non Stress Test Datetime Report Generated by CPN: 12/06/2018 16:17 DEMOGRAPHIC EGA NST: 37.1 INDICATION Indication for Study: Ordered by Provider MONITORING Monitor Explained: Monitor Explained; Test Explained; Patient Verbalized Understanding Time on Monitor: 12/06/2018 14:48 Time off Monitor: 12/06/2018 16:09 NST Duration: 81 NST INTERVENTIONS NST Interventions: PO Hydration Physician Notified NST: Kavita, CNM BABY A: [id number] BABY A Movement : Present Contraction Frequency : 6-11 FHR Baseline : 150 Accelerations : 15X15 Decelerations : None Variability : Moderate 6-25bpm NST Review: Meets Criteria for Reactive NST NST Review and Verified By : UMANG Cassidy Results: Reactive NST REPORT Report Trigger: Send Report
[2018-12-06 16:28] LABS: URINE AMPHETAMINES SCREEN NEGATIVE; URINE BENZODIAZEPINES SCREEN NEGATIVE; URINE COCAINE SCREEN NEGATIVE; URINE MARIJUANA (THC) SCREEN NEGATIVE; URINE METHADONE SCREEN NEGATIVE; URINE PHENCYCLIDINE SCREEN NEGATIVE
[2018-12-06 16:29] LABS: URINE BARBITURATES SCREEN NEGATIVE
== END 2018-12-06 16:20 | disposition home or self-care (01) ==
LOC: LC 14:34
PROVIDERS: ATTEND Obstetrics & Gynecology
PROC: 4A1HXCZ Monitoring of Products of Conception, Cardiac Rate, External Approach (ICD-10-PCS; principal; 2018-12-06)
DX: O47.1 False labor at or after 37 completed weeks of gestation (principal); Z3A.37 37 weeks gestation of pregnancy
CPT/HCPCS: 59025; 80307; 81005

== ENCOUNTER 2018-12-23 20:36 | Outpatient (CLI) | payer OTHER, MEDICAID ==
[2018-12-23 21:18] LABS: APPEARANCE,URINE CLOUDY; BILIRUBIN,URINE NEGATIVE (NEGATIVE); COLOR,URINE YELLOW; GLUCOSE, URINE NEGATIVE (NEGATIVE); KETONES,URINE NEGATIVE (NEGATIVE); LEUKOCYTE ESTERASE,URINE NEGATIVE (NEGATIVE); NITRITE,URINE NEGATIVE (NEGATIVE); PROTEIN,URINE NEGATIVE (NEGATIVE); URINE SPECIFIC GRAVITY 1.009; UROBILINOGEN,URINE NEGATIVE mg/dL (<2.0)
--- NOTE | 2018-12-23 21:18 | Non Stress Test Report ---
Non Stress Test Datetime Report Generated by CPN: 12/23/2018 21:18 DEMOGRAPHIC Test Number: 5 EGA NST: 39.4 INDICATION Indication for Study: Decreased Movement; Ordered by Provider MONITORING Monitor Explained: Monitor Explained; Test Explained; Patient Verbalized Understanding Time on Monitor: 12/23/2018 20:48 Time off Monitor: 12/23/2018 20:10 NST Duration: -38 NST INTERVENTIONS NST Interventions: None Physician Notified NST: Pacheco BABY A: [id number] BABY A Movement : Decreased Contraction Frequency : irregular FHR Baseline : 155 Accelerations : 15X15 Decelerations : None Variability : Moderate 6-25bpm NST Review: Meets Criteria for Reactive NST NST Review and Verified By : Janes Jiang RNC NST Results: Reactive NST REPORT Report Trigger: Send Report
[2018-12-23 21:35] LABS: URINE AMPHETAMINES SCREEN NEGATIVE; URINE BARBITURATES SCREEN NEGATIVE; URINE BENZODIAZEPINES SCREEN NEGATIVE; URINE COCAINE SCREEN NEGATIVE; URINE MARIJUANA (THC) SCREEN NEGATIVE; URINE METHADONE SCREEN NEGATIVE; URINE PHENCYCLIDINE SCREEN NEGATIVE
== END 2018-12-23 21:23 | disposition home or self-care (01) ==
LOC: LC 20:36
PROVIDERS: ATTEND Obstetrics & Gynecology
PROC: 4A1HXCZ Monitoring of Products of Conception, Cardiac Rate, External Approach (ICD-10-PCS; principal; 2018-12-23)
DX: O36.8130 Decreased fetal movements, third trimester, not applicable or unspecified (principal); O47.1 False labor at or after 37 completed weeks of gestation; Z3A.39 39 weeks gestation of pregnancy
CPT/HCPCS: 59025; 80307; 81005

== ENCOUNTER 2018-12-30 11:20 | Outpatient (CLI) | payer OTHER, MEDICAID ==
--- NOTE | 2018-12-30 12:02 | Non Stress Test Report ---
Non Stress Test Datetime Report Generated by CPN: 12/30/2018 12:02 DEMOGRAPHIC EGA NST: 40.4 INDICATION Indication for Study: Ordered by Provider Indication for Study (NST) Other: post dates MONITORING Monitor Explained: Monitor Explained; Test Explained; Patient Verbalized Understanding Time on Monitor: 12/30/2018 11:32 Time off Monitor: 12/30/2018 12:01 NST Duration: 29 NST INTERVENTIONS NST Interventions: PO Hydration Physician Notified NST: Love Álvarez, CNM BABY A: [id number] BABY A Movement : Present Contraction Frequency : 0 FHR Baseline : 135 Accelerations : 15X15 Decelerations : None Variability : Moderate 6-25bpm NST Review: Meets Criteria for Reactive NST NST Review and Verified By : UMANG Rosales Results: Reactive NST REPORT Report Trigger: Send Report
== END 2018-12-30 12:08 | disposition home or self-care (01) ==
LOC: LC 11:20
PROVIDERS: ATTEND Obstetrics & Gynecology
PROC: 4A1HXCZ Monitoring of Products of Conception, Cardiac Rate, External Approach (ICD-10-PCS; principal; 2018-12-30)
DX: O36.8130 Decreased fetal movements, third trimester, not applicable or unspecified (principal); Z3A.40 40 weeks gestation of pregnancy
CPT/HCPCS: 59025

== ENCOUNTER 2019-01-01 06:43 | Inpatient (IN) | payer OTHER, MEDICAID ==
[2019-01-01] MEDS ORDERED: RINGERS SOLUTION,LACTATED 300 ML IV ONE (06:51)
[2019-01-01 07:38] LABS: APPEARANCE,URINE SLIGHTLY-CLOUDY; BILIRUBIN,URINE NEGATIVE (NEGATIVE); COLOR,URINE YELLOW; GLUCOSE, URINE NEGATIVE (NEGATIVE); KETONES,URINE NEGATIVE (NEGATIVE); LEUKOCYTE ESTERASE,URINE NEGATIVE (NEGATIVE); NITRITE,URINE NEGATIVE (NEGATIVE); PROTEIN,URINE NEGATIVE (NEGATIVE); UROBILINOGEN,URINE NEGATIVE mg/dL (<2.0)
[2019-01-01] MEDS ORDERED: MISOPROSTOL 0.2 MG TABLET ONE (07:42)
[2019-01-01] MEDS ORDERED: LIDOCAINE 1% INJ-PF (10 MG/ML) 30 ML SDV ONE (07:42)
[2019-01-01] MEDS ORDERED: OXYTOCIN/NORMAL SALINE 20 UNIT/1,000 ML RTUINJ ONE (07:42)
[2019-01-01] MEDS ORDERED: VANCOMYCIN HCL INJ 1000 MG VIAL ONE ×2 (07:42→19:14)
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
[2019-01-01] MEDS: VANCOMYCIN HCL 1,000 MG in DEXTROSE 5%-WATER 250 ML IV SCH ×2 (07:51→19:59)
[2019-01-01 07:54] LABS: ABSOLUTE BASOPHILS # (AUTO) 0.1 10^3/uL (0.0-0.2); ABSOLUTE EOSINOPHILS # (AUTO) 0.1 10^3/uL (0.0-0.6); ABSOLUTE LYMPHOCYTES (AUTO) 2.2 10^3/uL (0.5-4.7); ABSOLUTE MONOCYTES (AUTO) 0.8 10^3/uL (0.1-1.4); BASOPHILS % (AUTO) 0.9 % (0-2); EOSINOPHILS % (AUTO) 0.6 % (0-6); HEMATOCRIT 32.5 % (36.0-47.0); HEMOGLOBIN 10.9 g/dL (12.0-15.5); LYMPHOCYTES % (AUTO) 24.2 % (13-45); MEAN CORPUSCULAR HEMOGLOBIN 28.4 pg (27.0-33.4); MEAN CORPUSCULAR HGB CONC 33.6 g/dL (32.0-36.0); MEAN CORPUSCULAR VOLUME 84 fl (80-97); MONOCYTES % (AUTO) 8.4 % (3-13); PLATELET COUNT 305 10^3/uL (150-450); RED BLOOD COUNT 3.85 10^6/uL (3.72-5.28); RED CELL DISTRIBUTION WIDTH 14.7 % (11.5-14.0); SEGMENTED NEUTROPHILS % (AUTO) 65.9 % (42-78); TOTAL CELLS COUNTED % (AUTO) 100 %
[2019-01-01 07:59] LABS: URINE AMPHETAMINES SCREEN NEGATIVE; URINE BARBITURATES SCREEN NEGATIVE; URINE BENZODIAZEPINES SCREEN NEGATIVE; URINE COCAINE SCREEN NEGATIVE; URINE MARIJUANA (THC) SCREEN NEGATIVE; URINE METHADONE SCREEN NEGATIVE; URINE PHENCYCLIDINE SCREEN NEGATIVE
[2019-01-01] MEDS: OXYTOCIN/NORMAL SALINE 20 UNIT/1,000 ML RTUINJ IV PRN (07:59)
[2019-01-01] MEDS: RINGERS SOLUTION,LACTATED 1,000 ML IV PRN ×2 (08:00→11:28)
--- NOTE | 2019-01-01 13:10 | L&D Progress Notes ---
PROGRESS NOTES Datetime Report Generated by CPN: 01/01/2019 13:10 PROGRESS NOTE Impression: Reassuring Heart Rate Procedures: Sterile Vag Exam Plan: Continue Present Management Comment: Cervix is posterior. Unable to rupture at this time. VAGINAL EXAM Dilatation: 3 Dilatation: 1 Effacement: 50 Effacement: 50 Station: -2 Station: -2 LAST VAGINAL EXAM-NURSING Dilitation: 4.0 Dilitation: 4.0 Dilitation: 1.0 Dilitation: cl Dilitation: 1.0 Dilitation: 0.0 Dilitation: closed Effacement: 60 Effacement: 60 Effacement: 50 Effacement: th Effacement: thick Effacement: thick Effacement: thick Station: -2 Station: -2 Station: -2 Station: -3 Station: High Station: high Station: high Contractions: Palpated contrations x1 Contractions: Pt up to BR during this time Contractions: Unable to assess d/t pt being up to BR Contractions: pt states contractions are not painful MEMBRANES Pooling: Negative Membranes: Intact Membranes: Intact FETUS A FHR - Baseline: 150 Monitoring: External US FHR Category: Category I : 40.6 : 40.6 Estimated Weight (gm): 3400 Presentation: Vertex SIGNATURE SIGNATURE: [id number];10,[id number];[id number] SIGNATURE: 13,[id number];10,[id number];14,[id number] SIGNATURE: 14,[id number];10,[id number] SIGNATURE: 10,[id number];14,[id number] SIGNATURE: 14,[id number];10,[id number] SIGNATURE: 10,[id number];14,[id number] SIGNATURE: 14,[id number];10,[id number] Assignment: Millie Pacheco MD Signature: with User ID: [email or web address] : with User ID: [email or web address] : I personally evaluated and examined the patient in conjunction with the MLP and agree with the assessment, treatment plan and disposition.
[2019-01-01] MEDS ORDERED: EPHEDRINE SULFATE INJ 50 MG/1 ML AMPULE ONE (14:54)
[2019-01-01] MEDS ORDERED: FENTANYL/BUPIVACAINE/NS/PF 300 MCG/150 ML RTUINJ EPI ONE (14:55)
[2019-01-01] MEDS ORDERED: BUPIVACAINE HCL 0.25 % INJ/PF (2.5 MG/1 ML) 30 ML VIAL ONE (14:55)
[2019-01-01] MEDS ORDERED: LIDOCAINE 1.5%/EPINEPHRINE INJ 5 ML AMP ONE (14:55)
--- NOTE | 2019-01-01 16:18 | L&D Progress Notes ---
PROGRESS NOTES Datetime Report Generated by CPN: 01/01/2019 16:17 PROGRESS NOTE Impression: Reassuring Heart Rate Procedures: Artificial ROM; Sterile Vag Exam Plan: Continue Present Management Vital Signs : Reviewed Comment: SVE w AROM-clear. Epidural now in place. Patient comfortable. VAGINAL EXAM Dilatation: 3 Effacement: 60 Station: -1 Dilitation: 6.0 Effacement: 80 Station: -1 MEMBRANES Membranes: Ruptured Amniotic Fluid Color: Clear FETUS A FHR - Baseline: 10 Monitoring: External US : 40.6 FETUS C SIGNATURE: [id number];10,[id number];14,[id number] Assignment: Millie Pacheco MD Signature: with User ID: [email or web address] : with User ID: [email or web address] : I personally evaluated and examined the patient in conjunction with the MLP and agree with the assessment, treatment plan and disposition.
[2019-01-01] MEDS ORDERED: LIDOCAINE 2% INJ-PF (20 MG/ML) 10 ML AMPUL ONE (16:44)
[2019-01-01] MEDS ORDERED: NALBUPHINE HCL INJ 10 MG/1 ML AMPULE ONE (17:21)
[2019-01-01] MEDS ORDERED: PROMETHAZINE HCL INJ 25 MG/1 ML VIAL ONE (17:21)
[2019-01-01] MEDS ORDERED: NALBUPHINE HCL INJ 10 MG/1 ML AMPULE INJ ONE (17:48)
[2019-01-01] MEDS ORDERED: PROMETHAZINE HCL INJ 25 MG/1 ML VIAL IV ONE (17:48)
[2019-01-01] MEDS ORDERED: ACETAMINOPHEN 325 MG TABLET ONE (20:36)
[2019-01-01] MEDS ORDERED: ACETAMINOPHEN 325 MG TABLET PO PRN (20:52)
[2019-01-02] MEDS ORDERED: FENTANYL/BUPIVACAINE/NS/PF 300 MCG/150 ML RTUINJ EPI ONE (02:00)
[2019-01-02] MEDS ORDERED: PROMETHAZINE HCL INJ 25 MG/1 ML VIAL IV ONE (02:42)
[2019-01-02] MEDS ORDERED: NALBUPHINE HCL INJ 10 MG/1 ML AMPULE INJ ONE ×2 (02:43→09:00)
[2019-01-02] MEDS ORDERED: PROMETHAZINE HCL INJ 25 MG/1 ML VIAL ONE (02:45)
[2019-01-02] MEDS ORDERED: NALBUPHINE HCL INJ 10 MG/1 ML AMPULE ONE ×2 (02:46→07:39)
[2019-01-02] MEDS ORDERED: OXYTOCIN/NORMAL SALINE 20 UNIT/1,000 ML RTUINJ ONE (03:38)
[2019-01-02] MEDS: OXYTOCIN/NORMAL SALINE 20 UNIT/1,000 ML RTUINJ IV PRN (05:01)
[2019-01-02] MEDS: RINGERS SOLUTION,LACTATED 1,000 ML IV PRN (06:21)
[2019-01-02] MEDS ORDERED: VANCOMYCIN HCL INJ 1000 MG VIAL ONE (08:23)
[2019-01-02] MEDS ORDERED: OXYTOCIN/NORMAL SALINE 20 UNIT/1,000 ML RTUINJ IV PRN ×2 (08:58→14:48)
[2019-01-02] MEDS ORDERED: VANCOMYCIN HCL 1,000 MG in DEXTROSE 5%-WATER 250 ML IV SCH (09:00)
[2019-01-02] MEDS ORDERED: LIDOCAINE 2% INJ-PF (20 MG/ML) 10 ML AMPUL ONE (10:52)
[2019-01-02] MEDS ORDERED: BENZOCAINE/MENTHOL AEROSOL SPRAY 56 ML TOP PRN (14:48)
[2019-01-02] MEDS ORDERED: PROMETHAZINE HCL INJ 25 MG/1 ML VIAL IV PRN (14:48)
[2019-01-02] MEDS ORDERED: PROMETHAZINE HCL 25 MG SUPP.RECT PR PRN (14:48)
[2019-01-02] MEDS ORDERED: GLYCERIN/WITCH HAZEL LEAF 1 EACH MED..PAD TP PRN (14:48)
[2019-01-02] MEDS ORDERED: DIPH/PERTUSS(ACELL)/TETANUS VAC/PF 0.5 ML SYR (>=10YO) IM PRN (14:48)
[2019-01-02] MEDS ORDERED: ZOLPIDEM TARTRATE 5 MG TABLET PO PRN (14:48)
[2019-01-02] MEDS ORDERED: ACETAMINOPHEN WITH CODEINE #3 TABLET PO PRN ×2 (14:48)
[2019-01-02] MEDS ORDERED: PROMETHAZINE HCL 25 MG TABLET PO PRN (14:48)
[2019-01-02] MEDS ORDERED: ACETAMINOPHEN 650 MG SUPP.RECT PR PRN (14:48)
[2019-01-02] MEDS ORDERED: MEASLES,MUMPS&RUBELLA VACC/PF 0.5 ML VIAL SUBCUT PRN (14:48)
[2019-01-02] MEDS ORDERED: NA PHOS,M-B/NA PHOS,DI-BA (ADULT) 133 ML ENEMA PR PRN (14:48)
[2019-01-02] MEDS ORDERED: PSEUDOEPHEDRINE HCL 30 MG TABLET PO PRN (14:48)
[2019-01-02] MEDS ORDERED: MAGNESIUM HYDROXIDE SUSP 30 ML UDCUP PO PRN (14:48)
[2019-01-02] MEDS ORDERED: DIBUCAINE 1% OINTMENT 56 GM TP PRN (14:48)
[2019-01-02] MEDS ORDERED: DIPHENHYDRAMINE HCL 25 MG CAPSULE PO PRN (14:48)
--- NOTE | 2019-01-02 17:05 | Delivery Summary ---
Del Sum A-C Datetime Report Generated by CPN: 01/02/2019 17:05 DELIVERY PERSONNEL DELIVERY PERSONNEL: [id number] Delivery Doctor:: Nemesio Zimmerman MD Labor and Delivery Nurse:: Lona Griffiths RNsock drier Nurse:: eJssi Condon RN Nursery Nurse:: Luciana Pastor RN Manager Medical/PROFESSIONAL SERVICES SPECIALIST: Pilar Hunter, ST MATERNAL INFORMATION Delivery Anesthesia: Epidural Medications After Delivery: Pitocin Drip 20 Units/1000ml NSS Maternal Complications: None LABOR SUMMARY EDC: 12/26/2018 00:00 No. Babies in Womb: 1 Attempted: No Labor Anesthesia: Epidural LABOR INFORMATION Reason for Induction: Post Dates Onset of Labor: 01/01/2019 23:42 Complete Dilatation: 01/02/2019 13:00 Oxytocin: Induction Group B Beta Strep: Positive Antibiotics # of Doses: 3 Antibiotics Time of Last Dose: 0900 Name of Antibiotic Given: Vancomycin MEMBRANES Membranes Rupture Method: Artificial Rupture of Membranes: 01/01/2019 16:00 Length of Rupture (hr): 22.67 Amniotic Fluid Color: Clear Amniotic Fluid Amount: Moderate Amniotic Fluid Odor: Normal STAGES OF LABOR Stage 1 hr: 13 Stage 1 min: 18 Stage 2 hr: 1 Stage 2 min: 40 Stage 3 hr: 0 Stage 3 min: 3 Total Time in Labor hr: 15 Total Time in Labor min: 1 VAGINAL DELIVERY Episiotomy: None Laceration #1: None Laceration Extension #1: N/A Laceration Repair: Not Applicable CSECTION DELIVERY Primary Indication: N/A Secondary Indication: N/A CSection Incidence: N/A Labor: N/A Elective: N/A CSection Incision: N/A BABY A INFORMATION Infant Delivery Date/Time: 01/02/2019 14:40 Method of Delivery: Vaginal Born in Route : No : N/A Forceps: N/A Vacuum Extraction: Successful Shoulder Dystocia : Yes SHOULDER DYSTOCIA BABY A 1st Intervention to Resolve: Gentle Attempt at Traction, Assisted by Maternal Expulsive Efforts 2nd Intervention to Resolve: McRobert's Maneuver 3rd Intervention to Resolve: Suprapubic Pressure PRESENTATION/POSITION BABY A Presentation: Cephalic Cephalic Presentation: Vertex Vertex Position: Right Occipital Anterior Breech Presentation: N/A PLACENTA INFORMATION BABY A Placenta Delivery Time : 01/02/2019 14:43 Placenta Method of Delivery: Spontaneous Placenta Status: Retained SCORES BABY A Heart Rate 1 min: >100 bpm Resp Effort 1 min: Slow, Irregular Reflex Irritability 1 min: Cough or Sneeze or Pulls Away Muscle Tone 1 min: Active Motion Color 1 min: Body [place], Extremities Blue Resuscitation Effort 1 min: Tactile Stimulation SCORE 1 MIN: 8 Heart Rate 5 min: >100 bpm Resp Effort 5 min: Good Cry Reflex Irritability 5 min: Cough or Sneeze or Pulls Away Muscle Tone 5 min: Active Motion Color 5 min: Body [place], Extremities Blue Resuscitation Effort 5 min: Tactile Stimulation SCORE 5 MIN: 9 INFORMATION BABY A Gestational Age at Delivery: 41.0 Gestational Status: Late Term- 41- 41.6 Weeks Infant Outcome : Liveborn Infant Condition : Stable Infant Sex: Female IDENTIFICATION BABY A Infant Verification Date/Time: 01/02/2019 15:04 ID Band Number: [id number] Mother's Name Verified: Yes RN Verifying Infant: Lou Condon RN, JSoheila [facility] RN WEIGHT/LENGTH BABY A Birthweight (gm): 4589 Infant Weight (lb): 10 Infant Weight (oz): 2 Infant Length (in): 22.00 Length (cm): 55.88 CORD INFORMATION BABY A No. Cord Vessels: 3 Nuchal Cord : N/A Cord Blood Taken: Yes-For Eval (Mom's Blood Type - or O+) Suction: Mouth ASSESSMENT BABY A Infant Complications: None Physical Findings at Delivery: Within Normal Limits Physical Findings- Other: vacuume applyed 2 pulls no pop offs mild to mod shoulder dystocia Alex suprapubic pressure readily resolved Respirations: Appears Normal Skin to Skin: Yes Skin to Skin Time (min): 60 Centerless Grinder/ALS Called : No Infant Care By: UMANG Buenrostro Transferred To: Remains with Mother BABY B INFORMATION : N/A SIGNATURES Signature: with User ID: [email or web address] : I personally evaluated and examined the patient in conjunction with the MLP and agree with the assessment, treatment plan and disposition.
[2019-01-02] MEDS: FERROUS SULFATE 325 MG TABLET PO SCH (19:39)
[2019-01-02] MEDS: DOCUSATE SODIUM 100 MG CAPSULE PO SCH (19:39)
[2019-01-02] MEDS: VANCOMYCIN HCL 1,000 MG in DEXTROSE 5%-WATER 250 ML IV SCH (19:49)
[2019-01-02] MEDS: FAMOTIDINE 20 MG TABLET PO SCH (22:02)
[2019-01-02] MEDS: IBUPROFEN 800 MG TABLET PO SCH (22:02)
[2019-01-03] MEDS: IBUPROFEN 800 MG TABLET PO SCH ×3 (06:06→21:43)
[2019-01-03 07:14] LABS: HEMATOCRIT 29.1 % (36.0-47.0); MEAN CORPUSCULAR HEMOGLOBIN 28.9 pg (27.0-33.4); MEAN CORPUSCULAR HGB CONC 34.4 g/dL (32.0-36.0); MEAN CORPUSCULAR VOLUME 84 fl (80-97); PLATELET COUNT 274 10^3/uL (150-450); RED BLOOD COUNT 3.46 10^6/uL (3.72-5.28); RED CELL DISTRIBUTION WIDTH 14.7 % (11.5-14.0); WHITE BLOOD COUNT 18.7 10^3/uL (4.0-10.5)
[2019-01-03] MEDS: FERROUS SULFATE 325 MG TABLET PO SCH ×2 (10:07→17:33)
[2019-01-03] MEDS: DOCUSATE SODIUM 100 MG CAPSULE PO SCH ×2 (10:07→17:33)
[2019-01-03] MEDS: SENNOSIDES/DOCUSATE 8.6-50 MG 1 EACH TABLET PO SCH (10:07)
[2019-01-03] MEDS: PRENATAL VITAMIN W DHA CAPSULE PO SCH (10:07)
[2019-01-03] MEDS: FAMOTIDINE 20 MG TABLET PO SCH ×2 (10:07→21:43)
--- NOTE | 2019-01-03 15:22 | PDOC PROGRESS REPORT ---
Subjective-OB Progress Note for:: 01/03/19 Subjective: Pt doing well, no concerns. She reports light bleeding, reg diet and voiding without difficulty. Physical Exam (OB) Vital Signs: Temp Pulse Resp BP Pulse Ox 98.6 F 85 18 129/72 H 100 01/03/19 08:00 01/03/19 08:00 01/03/19 08:00 01/03/19 08:00 01/03/19 08:00 Intake & Output 01/02/19 01/03/19 01/04/19 06:59 06:59 06:59 Intake Total 1809 2100 Balance 1809 2100 Weight 81.8 kg - Lochia Lochia Amount: Scant < 10 ml Lochia Color: Rubra/Red - Abdomen Description: Soft, Round Hernia Present: No Fundal Description: Firm, Midline Fundal Height: 1/u - 2/u Objective-Diagnostic Laboratory: 01/03/19 06:55 01/03/19 06:55 WBC 18.7 H D RBC 3.46 L Hgb 10.0 L Hct 29.1 L MCV 84 MCH 28.9 MCHC 34.4 RDW 14.7 H Plt Count 274 Assessment and Plan(PN) - Assessment and Plan (1) (normal spontaneous vaginal delivery) Is this a current diagnosis for this admission?: Yes (2) Encounter for induction of labor Is this a current diagnosis for this admission?: Yes - Time Spent with Patient Time with patient: Less than 15 minutes Medications reviewed and adjusted accordingly: Yes - Disposition Anticipated Discharge: Home Within: within 24 hours
[2019-01-04] MEDS: IBUPROFEN 800 MG TABLET PO SCH ×2 (05:18→14:41)
--- NOTE | 2019-01-04 09:19 | PDOC DISCHARGE SUMMARY ---
Final Diagnosis Discharge Date: 01/04/19 - Final Diagnosis (1) (normal spontaneous vaginal delivery) Is this a current diagnosis for this admission?: Yes (2) Encounter for induction of labor Is this a current diagnosis for this admission?: Yes (3) Shoulder dystocia during labor and delivery, delivered Is this a current diagnosis for this admission?: Yes Discharge Data - Discharge Medication Home Medications: Vit 87/Iron/Folic/Dha [Prenate Mini Softgel] 1 tab PO DAILY 06/27/18 Acyclovir [Acyclovir 400 mg Tablet] 400 mg PO DAILY 01/01/19 Reason(s) for Admission: Induction of Labor Procedures: NST Intrapartum Procedure(s): Spontaneous Vaginal Delivery Intrapartum Procedure Note: management of shoulder dystocia - Diagnosis Test Laboratory: Temp Pulse Resp BP Pulse Ox 98.7 F 80 18 135/75 H 97 01/03/19 20:02 01/03/19 20:02 01/03/19 20:02 01/03/19 20:02 01/03/19 20:02 01/01/19 01/01/19 01/03/19 06:51 07:11 06:55 RBC 3.85 3.46 L Hgb 10.9 L 10.0 L Hct 32.5 L 29.1 L Urine Opiates Screen NEGATIVE - Discharge information/Instructions Discharge Activity: Balance Activity w/Rest, Pelvic Rest Discharge Diet: Regular Disposition: HOME, SELF-CARE Follow up with: [facility] in: 4, Weeks
[2019-01-04] MEDS: DOCUSATE SODIUM 100 MG CAPSULE PO SCH (11:35)
[2019-01-04] MEDS: FERROUS SULFATE 325 MG TABLET PO SCH (11:35)
[2019-01-04] MEDS: PRENATAL VITAMIN W DHA CAPSULE PO SCH (11:36)
[2019-01-04] MEDS: SENNOSIDES/DOCUSATE 8.6-50 MG 1 EACH TABLET PO SCH (11:36)
[2019-01-04] MEDS: FAMOTIDINE 20 MG TABLET PO SCH (11:36)
[2019-01-04 12:22] VITALS: BP 129/72
== END 2019-01-04 15:50 | disposition home or self-care (01) | DRG 807 ==
LOC: LR 06:43 → 2S 01-02 19:30
PROVIDERS: ADMIT Obstetrics & Gynecology; ATTEND Obstetrics & Gynecology
PROC: 3E033VJ Introduction of Other Hormone into Peripheral Vein, Percutaneous Approach (ICD-10-PCS; 2019-01-01)
PROC: 10907ZC Drainage of Amniotic Fluid, Therapeutic from Products of Conception, Via Natural or Artificial Opening (ICD-10-PCS; 2019-01-01)
PROC: 4A1HXCZ Monitoring of Products of Conception, Cardiac Rate, External Approach (ICD-10-PCS; 2019-01-01)
PROC: 10E0XZZ Delivery of Products of Conception, External Approach (ICD-10-PCS; principal; 2019-01-02)
DX: O48.0 Post-term pregnancy (principal); Z37.0 Single live birth; O99.824 Streptococcus B carrier state complicating childbirth; O66.0 Obstructed labor due to shoulder dystocia; Z88.0 Allergy status to penicillin; Z3A.41 41 weeks gestation of pregnancy
CPT/HCPCS: 36415; 80307; 81005; 85025; 85027; 86592; 86850; 86900; 86901; 94760; J2300; J2550; J2590; J3010; J3370; J3490; J7060

== ENCOUNTER 2019-09-04 07:52 | Emergency (ER) | payer MEDICAID, OTHER ==
[2019-09-04] MEDS ORDERED: TETRACAINE HCL 0.5% OPH SOLN 4 ML ONE ×2 (09:49→09:53)
[2019-09-04] MEDS ORDERED: HOMATROPINE HBR 5% OPH SOLN 5 ML OS ONE (09:58)
[2019-09-04] MEDS ORDERED: KETOROLAC TROMETHAMINE 0.45% 4 DROP/0.4 ML DROPERETTE OS ONE (09:58)
--- NOTE | 2019-09-04 10:29 | ER Document Report ---
Entered by SOFI GARCIA SCRIBE 09/04/19 0941 Acting as scribe for:POP MOHAN MD ED Eye Complaint - General Chief Complaint: Eye Problem Stated Complaint: LEFT EYE SWELLING, PAIN Time Seen by Provider: 09/04/19 09:37 Mode of Arrival: Ambulatory Information source: Patient Notes: This 28-year-old female patient presents to the emergency department today with complaints of left eye pain which began yesterday. Patient denies any foreign body. Patient does not wear contacts. Later during the visit, the patient recalls that her young child may have popped her in the eye. TRAVEL OUTSIDE OF THE [place] IN LAST 30 DAYS: No - Related Data Allergies/Adverse Reactions: Penicillins Allergy (Verified 01/01/19 07:05) Past Medical History - General Information source: Patient - Social History Smoking Status: Never Smoker Cigarette use (# per day): No Chew tobacco use (# tins/day): No Frequency of alcohol use: None Drug Abuse: None Lives with: Family Family History: Reviewed & Not Pertinent Patient has suicidal ideation: No Patient has homicidal ideation: No Pulmonary Medical History: Reports: Hx Asthma Neurological Medical History: Reports: Hx Migraine Musculoskeletal Medical History: Reports Hx Musculoskeletal Deformity - Scoliosis Past Surgical History: Reports: Hx Orthopedic Surgery - Rashid rods and screws - Immunizations Immunizations up to date: Yes Review of Systems - Review of Systems Constitutional: No symptoms reported EENT: See HPI, Eye pain Cardiovascular: No symptoms reported Respiratory: No symptoms reported Gastrointestinal: No symptoms reported Genitourinary: No symptoms reported Female Genitourinary: No symptoms reported Musculoskeletal: No symptoms reported Skin: No symptoms reported Hematologic/Lymphatic: No symptoms reported Neurological/Psychological: No symptoms reported -: Yes All other systems reviewed and negative Physical Exam - Vital signs Vitals: Temp Pulse Resp BP Pulse Ox 98.2 F 77 16 133/82 H 100 09/04/19 07:56 09/04/19 07:56 09/04/19 07:56 09/04/19 07:56 09/04/19 07:56 - Notes Notes: Physical Exam: General: Alert, appears uncomfortable, sitting in a dark room for comfort. HEENT: Normocephalic. Atraumatic. Oropharynx clear. Neck: Supple. Non-tender. Respiratory: No respiratory distress. Clear and equal breath sounds bilaterally. Cardiovascular: Regular rate and rhythm. Abdominal: Normal Inspection. Non-tender. No distension. Normal Bowel Sounds. Back: No gross abnormalities. Extremities: Moves all four extremities. Upper extremities: Normal inspection. Normal ROM. Lower extremities: Normal inspection. No edema. Normal ROM. Neurological: Normal cognition. AAOx4. Normal speech. Psychological: Normal affect. Normal Mood. Skin: Warm. Dry. Normal color. - HEENT Head: Normocephalic, Atraumatic Eyes: Normal Conjunctiva: Injected Cornea: Corneal abrasion, Corneal ulcer, Flourescein stain uptake, Other - See the procedure note.. No: Embedded foreign body, Superficial foreign body Extraocular movements intact: Yes Pupils: PERRL Visual acuity- Right eye: 20/20 Visual acuity- Left eye: 20/30 Visual acuity- Both eyes: 20/20 Corrective lenses worn: No Course - Re-evaluation Re-evalutation: 09/04/19 10:01 PROCEDURE: The patient is a left eye has injected sclera. There is an abrasion or ulcer noted in the left medial aspect of the cornea. Tetracaine drops were placed in the left eye. Fluorescein stain was applied. The patient appears to have a small linear abrasion with a slightly larger less deep ulceration. No foreign body is noted. The fluorescein was irrigated out with normal saline. 09/04/19 10:29 Ketorolac drops were placed in the left eye. - Vital Signs Vital signs: Temp Pulse Resp BP Pulse Ox 98.2 F 77 16 133/82 H 100 09/04/19 07:56 09/04/19 07:56 09/04/19 07:56 09/04/19 07:56 09/04/19 07:56 - Consults Dr. Walker Consulted provider: follow-up in office Discharge - Discharge Clinical Impression: Corneal abrasion Qualifiers: Encounter type: initial encounter Laterality: left Qualified Code(s): S05.02XA - Injury of conjunctiva and corneal abrasion without foreign body, left eye, initial encounter Condition: Stable Disposition: HOME, SELF-CARE Additional Instructions: Corneal Abrasion: You have a corneal abrasion, a scratch on the surface of the eye. The pain of a corneal abrasion feels like a sharp particle in the eye. Usually, antibiotics are placed in the eye to prevent infection. Occasionally, medication will be placed in the eye to dilate the pupil. This is done to relieve some of your discomfort and is only temporary. Pain medication may be required. Don't drive or operate machinery until you have the use of both your eyes. The abrasion usually is healed in one or two days. A follow-up examination to confirm healing is recommended. Call the doctor or return at once if you develop severe pain, decreasing vision, eye swelling, or purulent drainage. Use the Cipro drops as follows: 2 drops into the left eye every 30 minutes for 2 hours, then 2 drops every 6 hours. Use the ketorolac drops as follows: 1 drop into the left eye every 4 hours. Avoid wind and sunlight. Call Dr. Walker today to schedule an appointment for tomorrow. RETURN TO THE EMERGENCY ROOM IF ANY NEW OR WORSENING SYMPTOMS. Forms: Return to Work Referrals: CHANDNI WALKER, [ACTIVE STAFF] - Follow up tomorrow (Call today to schedule an appointment for tomorrow.) Scribe Attestation: 09/04/19 11:06 I personally performed the services described in the documentation, reviewed and edited the documentation which was dictated to the scribe in my presence, and it accurately records my words and actions. I personally performed the services described in the documentation, reviewed and edited the documentation which was dictated to the scribe in my presence, and it accurately records my words and actions.
[2019-09-04] MEDS ORDERED: CIPROFLOXACIN HCL 0.3% OPH SOLN 2.5 ML OS ONE (10:30)
[2019-09-04 11:24] VITALS: BP 129/70
== END 2019-09-04 11:21 | disposition home or self-care (01) ==
LOC: ER 07:52
DX: S05.02XA Injury of conjunctiva and corneal abrasion without foreign body, left eye, initial encounter (principal); X58.XXXA Exposure to other specified factors, initial encounter; Z88.0 Allergy status to penicillin; J45.909 Unspecified asthma, uncomplicated
CPT/HCPCS: J3490 ×3; 99283

== ENCOUNTER 2019-12-19 13:40 | Emergency (ER) | payer OTHER ==
--- NOTE | 2019-12-19 14:19 | ER Document Report ---
ED Medical Screen (RME) - General Chief Complaint: Eye Injury Stated Complaint: LEFT EYE PAIN/SWELLING Time Seen by Provider: 12/19/19 14:13 Notes: HPI: 29-year-old female presenting with left ocular injury today. Patient was on the bed with her daughter who weighs approximately 22 pounds and states the infant went to step over her to grab something on the headboard and stepped down on her eye. She complains of visual blurring, ocular pain with redness and tearing. I have greeted and performed a rapid initial assessment of this patient. A comprehensive ED assessment and evaluation of the patient, analysis of test results and completion of the medical decision making process will be conducted by additional ED providers PHYSICAL EXAMINATION: GENERAL: Well-appearing, well-nourished and in moderate acute distress. HEAD: Atraumatic, normocephalic. EYES: sclera anicteric, injected conjunctive the left eye. There is moderate soft tissue swelling of the upper and lower eyelids of the left eye. Limited exam in triage. ENT: Moist mucous membranes. NECK: Normal range of motion LUNGS: Normal work of breathing HEART: 2+ radial pulses bilaterally ABD: limited by positioning for exam in triage. EXTREMITIES: no pitting or edema. No cyanosis. NEUROLOGICAL: No focal neurological deficits. Moves all extremities spontaneously and on command. PSYCH: Normal mood, normal affect. SKIN: Warm, Dry, normal turgor, no rashes or lesions noted. TRAVEL OUTSIDE OF THE [place] IN LAST 30 DAYS: No - Related Data Allergies/Adverse Reactions: Penicillins Allergy (Verified 01/01/19 07:05) Past Medical History Pulmonary Medical History: Reports: Hx Asthma Neurological Medical History: Reports: Hx Migraine Renal/ Medical History: Denies: Hx Peritoneal Dialysis Musculoskeltal Medical History: Reports Hx Musculoskeletal Deformity - Scoliosis Past Surgical History: Reports: Hx Orthopedic Surgery - Rashid rods and screws - Immunizations Immunizations up to date: Yes Physical Exam - Vital signs Vitals: Temp Pulse Resp BP Pulse Ox 98.4 F 99 16 123/70 97 12/19/19 13:49 12/19/19 13:49 12/19/19 13:49 12/19/19 13:49 12/19/19 13:49 Course - Vital Signs Vital signs: Temp Pulse Resp BP Pulse Ox 98.4 F 99 16 123/70 97 12/19/19 13:49 12/19/19 13:49 12/19/19 13:49 12/19/19 13:49 12/19/19 13:49
--- NOTE | 2019-12-19 15:16 | RADIOLOGY REPORT (SQ) ---
EXAM DESCRIPTION: CT ORBIT/SELLA WITHOUT COMPLETED DATE/TIME: 12/19/2019 2:42 pm REASON FOR STUDY: blunt eye trauma COMPARISON: None. TECHNIQUE: Noncontrasted images through the orbits windowed for bone and soft tissue. Additional co christiano and sagittal reconstructed images reviewed. All images stored on PACS. All CT scanners at this facility use dose modulation, iterative reconstruction, and/or weight based d osing when appropriate to reduce radiation dose to as low as reasonably achievable (ALARA). [facility]: Dose Right [facility]: CareDose [facility]: Dose Right [facility]: Teradose 4D [facility]: StyleHop RADIATION DOSE: CT Rad equipment meets quality standard of care and radiation dose reduction techniq ues were employed. CTDIvol: 30.4 mGy. DLP: 350 mGy-cm. mGy. LIMITATIONS: None. FINDINGS: FACIAL BONES: No fracture. Zygomatic arches, pterygopalatine plates and mandibular condyl es are well aligned. ORBITS: Intact. No fracture. Symmetric intact globes and retroorbital soft tissues. Mild dysconjug ate gaze. PARANASAL SINUSES: Clear. No significant mucosal thickening, mass or fluid. No nasal polyps. Maxilla ry sinus outlets are patent. SOFT TISSUES: No mass or edema. INFERIOR BRAIN: Limited view. No acute findings. OTHER: No other significant finding. IMPRESSION: 1. No evidence of acute bony abnormality. No retrobulbar hematoma. 2. Globes are symmetric with mild dysconjugate gaze. Recommend correlation with ocular exam. TECHNICAL DOCUMENTATION: JOB ID: [id number] Quality ID # [id number]: Final reports with documentation of one or more dose reduction techniques (e.g., Au tomated exposure control, adjustment of the mA and/or kV according to patient size, use of iterative reconstruction technique) 2010 [employer]- All Rights Reserved Reading location - IP/workstation name: [email or web address]
[2019-12-19] MEDS ORDERED: ACETAMINOPHEN 325 MG TABLET PO ONE (15:25)
[2019-12-19 18:58] VITALS: BP 122/80
[2019-12-19] MEDS ORDERED: TETRACAINE HCL 0.5% OPH SOLN 4 ML OD ONE ×2 (19:11→19:45)
--- NOTE | 2019-12-19 19:44 | ER Document Report ---
ED Eye Complaint - General Chief Complaint: Eye Injury Stated Complaint: LEFT EYE PAIN/SWELLING Time Seen by Provider: 12/19/19 14:13 Primary Care Provider: MARY ANN HERNANDEZ MD [ACTIVE STAFF] - Follow up as needed Notes: 29-year-old woman presents to the emergency department with eye injury. Apparently her 1-year-old stepped onto the right side of her face injuring the right eye. This occurred in the late afternoon and since then the eye has swollen with light sensitivity and pain. Patient notes that she has had a corneal abrasion in the past and that this feels very similar. She denies any loss of visual acuity.. TRAVEL OUTSIDE OF THE [place] IN LAST 30 DAYS: No - Related Data Allergies/Adverse Reactions: Penicillins Allergy (Verified 01/01/19 07:05) Past Medical History - Social History Smoking Status: Unknown if Ever Smoked Family History: Reviewed & Not Pertinent Patient has suicidal ideation: No Patient has homicidal ideation: No Pulmonary Medical History: Reports: Hx Asthma Neurological Medical History: Reports: Hx Migraine Renal/ Medical History: Denies: Hx Peritoneal Dialysis Musculoskeletal Medical History: Reports Hx Musculoskeletal Deformity - Scoliosis Past Surgical History: Reports: Hx Orthopedic Surgery - Rashid rods and screws - Immunizations Immunizations up to date: Yes Review of Systems - Review of Systems Notes: Constitutional: Negative for fever. HENT: Negative for sore throat. Eyes: + Left eye pain, + left eye photophobia. Cardiovascular: Negative for chest pain. Respiratory: Negative for shortness of breath. Gastrointestinal: Negative for abdominal pain, vomiting or diarrhea. Genitourinary: Negative for dysuria. Musculoskeletal: Negative for back pain. Skin: Negative for rash. Neurological: Negative for headaches, weakness or numbness. 10 point ROS negative except as marked above and in HPI. Physical Exam - Vital signs Vitals: Temp Pulse Resp BP Pulse Ox 98.4 F 99 16 123/70 97 12/19/19 13:49 12/19/19 13:49 12/19/19 13:49 12/19/19 13:49 12/19/19 13:49 - Notes Notes: PHYSICAL EXAMINATION: Physical Exam: General: Well-nourished well-developed in no acute distress HEENT: NC/AT, pupils equal round and reactive to light, left eye with tenderness around the orbital ridge, swelling of the upper lid, fluorescein stain with uptake in the central cornea at the iris. Right eye normal nontender. Neck: supple, no adenopathy, no masses. Good range of motion Lungs: clear, no wheezing, no rales no rhonchi CVS: Regular rate and rhythm no murmur gallop or rub Abdomen: Soft, active, nontender, no masses, no hepatosplenomegaly Ext: No edema, clubbing or cyanosis. Neuro: Alert and responsive, moving all 4 extremities on command, cranial nerves intact, no focal findings Skin: Intact no open lesions, no rash PSYCH: Normal mood, normal affect. - HEENT Visual acuity- Right eye: 20/30 Visual acuity- Both eyes: 20/25 Corrective lenses worn: No Course - Re-evaluation Re-evalutation: 12/19/19 19:43 Patient presents with left eye pain secondary to trauma, CT of the orbit reveals bony orbital structures intact without fracture globe intact. Fluorescein stain positive for corneal abrasion there is some soft tissue swelling in the left upper eyelid. Instructed to use a cold compress on the area of swelling, she is given antibiotic ointment and instructed to use analgesic medication for pain. I also told her that dark glasses will reduce the light sensitivity in the left eye. Patient acknowledges understanding of this plan and is in agreement. 12/19/19 19:53 - Vital Signs Vital signs: Temp Pulse Resp BP Pulse Ox 98.4 F 90 18 122/80 100 12/19/19 18:00 12/19/19 18:00 12/19/19 18:00 12/19/19 18:00 12/19/19 18:00 - Diagnostic Test Radiology reviewed: Image reviewed, Reports reviewed - CT orbit: No bony injury in the left orbit, globe intact. Procedures - Eye Procedure Left Time completed: 18:40 Fluorescein applied: Left - Central fluorescein uptake, corneal abrasion. Discharge - Discharge Clinical Impression: Left corneal abrasion Qualifiers: Encounter type: initial encounter Qualified Code(s): S05.02XA - Injury of conjunctiva and corneal abrasion without foreign body, left eye, initial encounter Condition: Good Disposition: HOME, SELF-CARE Instructions: Corneal Abrasion ([facility]) Additional Instructions: Use medication as prescribed, gentamicin ointment, Tylenol for pain, use a cold compress and wear dark glasses to reduce light sensitivity. Follow-up with your eye doctor as needed. HOME CARE INSTRUCTIONS & INFORMATION: Thank you for choosing us for your medical needs. We hope you're satisfied with the care you received. After you leave, you must properly care for your problem and, at the same time, observe its progress. Any condition can change. Some illnesses can change rapidly over hours or days. If your condition worsens, return to the Emergency Department or see your physician promptly. ABOUT YOUR X-RAYS AND EKG'S: If you had an EKG or X-rays taken, they have been read by the Emergency Physician. The X-rays and EKG's will also be read by a Radiologist or Airport Engineer within 24 hours. If discrepancies are noted, you will be notified by telephone. Please be certain the ED has a correct telephone number & address where you can be reached. Also, realize that some fractures or abnormalities do not show up on initial X-rays. If your symptoms continue, see your physician. ABOUT YOUR LABORATORY TEST: If you had laboratory tests, the results have been reviewed by the Emergency Physician. Some test results (for example cultures) may not be available for several days. You will be contacted if any test result shows you need additional treatment. Please be certain the ED has a correct telephone number and address where you can be reached. ABOUT YOUR MEDICATIONS: You will receive instructions on how to take your medicine on the prescription label you receive. Additional information may be provided by the Pharmacy. If you have questions afterwards, call the ED for clarification or further instructions. Some prescribed medications may cause drowsiness. Do not perform tasks such as driving a car or operating machinery without consulting your Pharmacist. If you feel you need a refill of pain medication, your condition will need re-evaluation. Please do not call for a refill of any medication. ABOUT YOUR SIGNATURE: Signature of this document acknowledges to followin. Understanding that you received emergency treatment and that you may be released before al medical problems are known or treated. Please be certain the ED has a correct phone number & address where you can be reached. 2. Acknowledgement that you will arrange for follow-up care as recommended. 3. Authorization for the Emergency Physician to provide information to your follow-up Physician in order to maximize your care. AT ANY TIME, IF YOUR SYMPTOMS CHANGE SIGNIFICANTLY OR WORSEN OR YOU DEVELOP NEW SYMPTOMS, RETURN TO THE EMERGENCY DEPARTMENT IMMEDIATELY FOR RE-EVALUATION. OUR GOAL IS TO PROVIDE EXCELLENT MEDICAL CARE! WE HOPE THAT WE HAVE MET YOUR EXPECTATIONS DURING YOUR EMERGENCY DEPARTMENT VISIT AND THAT YOU FEEL YOU HAVE RECEIVED EXCELLENT CARE! Prescriptions: Gentamicin Sulfate 1 applic OS TID 5 Days #3.5 oint...g. Referrals: MARY ANN HERNANDEZ MD [ACTIVE STAFF] - Follow up as needed
== END 2019-12-19 20:02 | disposition home or self-care (01) ==
LOC: ER 13:40
DX: S05.02XA Injury of conjunctiva and corneal abrasion without foreign body, left eye, initial encounter (principal); H57.12 Ocular pain, left eye; H57.89 Other specified disorders of eye and adnexa; W22.8XXA Striking against or struck by other objects, initial encounter; J45.909 Unspecified asthma, uncomplicated; Z88.0 Allergy status to penicillin
CPT/HCPCS: 99283; 70480; J3490